=== PATIENT | female | born 1935 | race Caucasian/White ===

== ENCOUNTER → 2017-10-25 | Outpatient (CLI) | payer MEDICARE, OTHER, SELFPAY | PROVIDERS: Visit Provider Physician Assistant | DX: I25.10 Atherosclerotic heart disease of native coronary artery without angina pectoris (principal); I10 Essential (primary) hypertension; D64.9 Anemia, unspecified; N28.9 Disorder of kidney and ureter, unspecified | CPT/HCPCS: 80053; 84443; 85025 ==

== ENCOUNTER → 2017-11-12 15:21 | Outpatient (CLI) | payer MEDICARE, OTHER, SELFPAY ==
--- NOTE | 2017-11-12 15:32 | XR_ITS ---
XR chest 2V HISTORY: ITS.REASON: PNEUMONIA ORDERING PHYSICIAN: Kay Pearce PATIENT AGE: 82 years COMPARISON: 10/06/2017 FINDINGS: There is cardiomegaly with mild pulmonary venous congestion consistent with mild chronic CHF. 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 No lobar consolidation or collapse is evident. There is some blunting of the right CP angle suggesting small right effusion. There is mild wedging involving T11 unchanged. IMPRESSION: Chronic CHF with postsurgical changes and small right effusion
== END ==
PROVIDERS: PCP Nurse Practitioner Family; Visit Provider Nurse Practitioner Family
DX: J18.9 Pneumonia, unspecified organism (principal)
CPT/HCPCS: 71046

== ENCOUNTER → 2018-01-03 13:46 | Outpatient (CLI) | payer MEDICARE, OTHER, SELFPAY ==
--- NOTE | 2018-01-03 14:11 | NVE_ITS ---
Venous Exam Indications: 451.19 Phlebitis and thrombophlebitis of other. 729.5 Pain in limb. IMPRESSIONS 1. There is no evidence of significant Reflux. 2. No evidence of DVT of leftlower leg or SVT involving LSV or GSV 3. Superficial vein thrombosis found in superficial vein posteriorlower calf above ankle Left lower extremity venous duplex evaluation. Doppler flow study including spectral analysis, color and george scale imaging. Location: Vascular laboratory. Patient status: Outpatient. CRITICAL FINDINGS - Reported to: Meggan - Read back and verified. - 01/03/18 - 2010 - SVT superficial vein Tables: Venous flow and imaging: + +-------+ + Location Overall Flow properties + +-------+ + Left common femoral Patent Normal phasicity; spontaneous; normal augmentation; compressible + +-------+ + Left saphenofemoral junction Patent Compressible + +-------+ + Left profunda femoral Patent Compressible + +-------+ + Left femoral Patent Normal phasicity; spontaneous; normal augmentation; compressible + +-------+ + Left greater saphenous Patent Normal phasicity; spontaneous; normal augmentation; compressible + +-------+ + Left popliteal Patent Normal phasicity; spontaneous; normal augmentation; compressible + +-------+ + Left posterior tibial Patent Compressible + +-------+ + Left peroneal Patent Compressible + +-------+ + Left gastrocnemius Patent Compressible + +-------+ + Left soleal Patent Compressible + +-------+ + (Report amended ) Electronically signed by: Phil Lozano [id number]
== END ==
PROVIDERS: PCP Family Medicine; Visit Provider Family Medicine
DX: R60.9 Edema, unspecified (principal); M79.605 Pain in left leg; I82.812 Embolism and thrombosis of superficial veins of left lower extremity
CPT/HCPCS: 93971

== ENCOUNTER → 2018-10-08 12:28 | Outpatient (CLI) | payer MEDICARE, OTHER, SELFPAY ==
[2018-10-08 12:48] LABS: Basophils # 0.1 K/mm3 (0-0.2); Basophils % 0.7 % (0.1-2.0); Eosinophils # 0.3 K/mm3 (0.0-0.4); Eosinophils % 2.9 % (0.1-12.0); Hematocrit 33.2 % (37.0-47.0); Hemoglobin 10.5 g/dL (12.2-16.2); Lymphocytes # 3.1 K/mm3 (0.7-4.5); Lymphocytes % 33.3 % (10-50); Mean Corpuscular HGB Conc 31.6 g/dL (31.8-35.4); Mean Corpuscular Hemoglobin 26.8 pg (27.0-31.2); Mean Corpuscular Volume 84.9 fl (81-99); Mean Platelet Volume 8.1 fl (7.4-10.4); Monocytes # 0.4 K/mm3 (0.1-1.0); Monocytes % 4.1 % (1.7-9.3); Neutrophils # 5.4 K/mm3 (1.8-7.8); Neutrophils % 59.1 % (37.0-80.0); Platelet Count 189 K/mm3 (142-424); Red Blood Count 3.91 M/mm3 (4.20-5.40); Red Cell Distribution Width 13.9 % (11.5-17.5); White Blood Count 9.2 K/mm3 (4.8-10.8)
[2018-10-08 14:52] LABS: Alanine Aminotransferase 16 U/L (12-78); Albumin Level 3.7 gm/dL (3.4-5.0); Albumin/Globulin Ratio 1.3 (1.1-1.8); Alkaline Phosphatase 158 U/L (46-116); Aspartate Amino Transferase 11 U/L (15-37); Bilirubin,Total 1.4 mg/dL (0.2-1.0); Blood Urea Nitrogen 41 mg/dL (7-18); Calcium 8.5 mg/dL (8.5-10.1); Carbon Dioxide 26 mmol/L (21.0-32.0); Chloride 102 mmol/L (98-107); Creatinine,Serum 1.99 mg/dL (0.55-1.02); Estimated Glomerular Filt Rate 24 ml/min (>60); GFR (African American) 29 ML/MIN (>60); Globulin 2.8 gm/dl (1.3-3.2); Glucose 268 mg/dL (74-106); Sodium 141 mmol/L (136-145); Thyroid Stimulating Hormone 8.45 uIU/ml (0.358-3.740); Total Protein,Serum 6.5 gm/dL (6.4-8.2)
== END ==
PROVIDERS: Visit Provider Physician Assistant
DX: I48.91 Unspecified atrial fibrillation (principal); I25.10 Atherosclerotic heart disease of native coronary artery without angina pectoris; I10 Essential (primary) hypertension
CPT/HCPCS: 36415; 80053; 84443; 85025

== ENCOUNTER → 2019-08-26 09:40 | Outpatient (CLI) | payer MEDICARE, OTHER, SELFPAY ==
--- NOTE | 2019-08-26 09:52 | MM_ITS ---
PROCEDURE: MM DIG SCREENING MAMM BI W/CAD Patient Age:84Y CLINICAL INDICATION: SCREENING routine screening. No hormones but no new complaints. Noncontributory family history. Previous biopsy right breast COMPARISON: [facility] CT CHEST W/O CONTRAST from 07/01/2015 DMSB DIG MAMM-SCREEN YINKA W/CAD from 11/12/2016 DMDXUAVL DIG MAMM-DX UNI A/VWS-LT W/CAD from 11/21/2016 TECHNIQUE: Standard CC and MLO images were obtained. R2 CAD reviewed. FINDINGS: . Minimal residual fibroglandular elements bilaterally but. No dominant nor new suspicious mass. Numerous benign mainly vascular calcifications bilaterally-the multi-vessel calcification seen here often correlates with a higher incidence of coronary vascular disease Right breast but no new areas of concern. A tiny metallic clip at central breast towards 6 o'clock from previous percutaneous biopsy. Left breast: No new areas of significant concern Tight cluster of dense benign-appearing calcifications a superior lateral left breast again noted unchanged since 2017-can be followed safely IMPRESSION: Stable bilateral mammogram with no new areas of significant concern Bilateral follow-up 1 year recommended BI-RAD Category: 2 Benign Finding(s) FOLLOW-UP: 1YR 1 Year Follow-up (A letter has been sent to the patient regarding results of the study.) Dictated by: Phil Lozano MD 08/29/2019 07:52 Electronically signed by Phil Lozano MD in [place] 08/29/2019 07:52
== END ==
PROVIDERS: PCP Family Medicine; Visit Provider Nurse Practitioner Family
DX: Z12.31 Encounter for screening mammogram for malignant neoplasm of breast (principal)
CPT/HCPCS: 77067

== ENCOUNTER → 2019-08-31 13:06 | Outpatient (CLI) | payer MEDICARE, OTHER, SELFPAY ==
--- NOTE | 2019-08-31 13:19 | XR_ITS ---
PROCEDURE: XR DEXA AXIAL SKELETON CLINICAL HISTORY: OSTEOPROSIS COMPARISON: No exams were available for comparison FINDINGS: L1-L4 density has a T-score of 0.0 with a density of 1.184 grams/centimeters sq. Left femoral neck density is 0.568 grams/centimeters sq with a T-score of -3.4 consistent with osteoporosis. IMPRESSION: Osteoporosis with high fracture risk. Treatment advised. Suggest follow-up exam August 2020 Dictated by: Uziel Pham MD 08/31/2019 14:26 Electronically signed by Uziel Pham MD in [place] 08/31/2019 14:26
== END ==
PROVIDERS: PCP Family Medicine; Visit Provider Nurse Practitioner Family
DX: M81.0 Age-related osteoporosis without current pathological fracture (principal)
CPT/HCPCS: 77080

== ENCOUNTER → 2019-09-22 15:16 | Outpatient (CLI) | payer MEDICARE, OTHER, SELFPAY ==
--- NOTE | 2019-09-22 15:22 | XR_ITS ---
PROCEDURE: XR CHEST 2V CLINICAL HISTORY: LEF EDEMA Edema COMPARISON: [facility] CT CHEST W/O CONTRAST from 07/23/2016 CXR1 CHEST-PORTABLE from 09/30/2017 CXR CHEST(2 VIEWS-NOT PORTABLE) from 10/06/2017 CXR2V XR chest 2V from 11/12/2017 FINDINGS: There is cardiomegaly with mild pulmonary venous congestion. Chronic changes are present in the upper lobes. There are old left-sided rib fractures. No lobar consolidation or collapse. There is minimal blunting of the CP angles on both sides. Degenerative changes of the thoracic spine. Mild wedging of T11 which is chronic IMPRESSION: Mild CHF with chronic changes Dictated by: Uziel Pham MD 09/22/2019 16:23 Electronically signed by Uziel Pham MD in [place] 09/22/2019 16:23
== END ==
PROVIDERS: PCP Nurse Practitioner Family; Visit Provider Nurse Practitioner Family
DX: R60.0 Localized edema (principal)
CPT/HCPCS: 71046

== ENCOUNTER 2019-10-05 06:39 | Inpatient (IN) ==
--- NOTE | 2019-10-05 06:50 | Emergency Department Note ---
ED Disposition Clinical Impression: Renal insufficiency, Obesity (BMI 30.0-34.9) Rib fractures Qualifiers: Encounter type: initial encounter Rib fracture type: multiple ribs Fracture type: closed Laterality: left Qualified Code(s): S22.42XA - Multiple fractures of ribs, left side, initial encounter for closed fracture Fall Qualifiers: Encounter type: initial encounter Qualified Code(s): W19.XXXA - Unspecified fal l, initial encounter Anemia Qualifiers: Anemia type: unspecified type Qualified Code(s): D64.9 - Anemia, unspecified Diabetes Qualifiers: Diabetes mellitus type: type 2 Diabetes mellitus 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 home 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 The time I documented below is in addition to time spent performing reported procedures but includes the following listed in this critical care notation. Medical Decision Making - Medical Records Medical records reviewed: Yes: I reviewed the patient's medical records. - Roland Inquiry Pt receiving controlled substance: No Vital Signs: 10/05/19 06:40 Temperature 97.7 F Temperature Source Oral Pulse Rate [Right] 94 H Respiratory Rate 20 Blood Pressure [Right Arm] 128/69 Blood Pressure Mean [Right Arm] 88 Blood Pressure Source [Right Arm] Automatic Cuff Blood Pressure Position [Right Arm] Sitting 02 Sat by Pulse Oximetry 93 L Oxygen Delivery Method Room Air - Lab Data Lab results reviewed: Yes: I reviewed the patient's lab results. Lab Results 10/05/19 06:57: WBC 10.8, RBC 3.33 L, Hgb 9.0 L, Hct 29.8 L, MCV 89.6, MCH 27.1, MCHC 30.3 L, RDW 14.1, Plt Count 164, MPV 9.2, Neut % (Auto) 65.2, Lymph % (Auto) 28.2, [place] % (Auto) 4.1, Eos % (Auto) 2.2, Baso % (Auto) 0.3, Neut # (Auto) 7.0, Lymph # (Auto) 3.0, [place] # (Auto) 0.5, Eos # (Auto) 0.2, Baso # (Auto) 0.0, ESR 21 10/05/19 06:57: Sodium 143, Potassium 3.9, Chloride 105, Carbon Dioxide 28, Anion Gap 13.9, BUN 24 H, Creatinine 1.85 H, Estimated Creat Clear 29, Estimated GFR 26 L, Est GFR ( Amer) 31 L, Glucose 281 H, Calcium 8.8, Total Bilirubin 1.9 H, AST 19, ALT 11 L, Alkaline Phosphatase 108, C-Reactive Protein < 0.2, Total Protein 5.8 L, Albumin 3.3 L, Globulin 2.5, Albumin/Globulin Ratio 1.3 Result diagrams: 10/05/19 06:57 10/05/19 06:57 Orders (Tests/Meds): ED MEDICATIONS Discontinued Medications Generic Name Dose Route Start Last Admin Trade Name Freq PRN Reason Stop Dose Admin Morphine Sulfate 2 mg 10/05/19 07:53 10/05/19 07:57 Morphine 2mg/Ml Syringe IV 10/05/19 07:54 2 mg ONCE ONE Administration Ondansetron HCl 4 mg 10/05/19 07:54 10/05/19 07:57 Zofran 4mg/2ml Vial IV 10/05/19 07:55 4 mg ONCE ONE Administration ORDERS Category Date Time Status CT cervical spine wo con Stat Cat Scan 10/05/19 06:[address] chest wo con Stat Cat Scan 10/05/19 06:[address] head/brain wo con Stat Cat Scan 10/05/19 06:48 Taken XR chest AP Stat Exams 10/05/19 06:48 Taken XR pelvis 1-2V Stat Exams 10/05/19 06:48 Taken XR shoulder LT min 2V Stat Exams 10/05/19 06:48 Taken - Radiology Data #1 Image(s): Chest, Shoulder, Pelvis Image Reviewed: Yes I reviewed the patient's radiology image Preliminary Findings: Abnormal (rib fx ) - CT Data CT Scan: Head, C-Spine, Chest Time Received: 08:[address] Reviewed: Yes: I have viewed the radiologist's interpretation Preliminary Findings: Abnormal (multiple rib fx lt ) - Physician Consults Physician Consulted: eugene Reason -: Admission General Adult HPI - General Chief complaint: PAIN Stated complaint: fall Time Seen by Provider: 10/05/19 06:50 Mode of Arrival: EMS Source of Information: Patient, Relative, EMS, Medical Record Limitations: No Limitations Description of Symptoms (Recalled from ER Triage Doc. by RN): Pt rolled out of bed hit head, left ribs and left shoulder pain - History of Present Illness HPI narrative: fell oob this am with lt shoulder and rib injury and hit head but no loc - pain with inspiration Onset (ago): hour(s) Location: head, neck, chest, left, upper extremity Severity: moderate Associated symptoms: denies other symptoms Treatments prior to arrival: none - Related Data Allergies Allergy/AdvReac Type Severity Reaction Status Date / Time betamethasone Allergy Unknown Verified 10/05/19 08:00 [From CELESTONE] cefuroxime [From CEFTIN] Allergy Unknown Verified 10/05/19 08:00 dexamethasone [From DECADRON] Allergy Unknown Verified 10/05/19 08:00 enoxaparin [From LOVENOX] Allergy Unknown Verified 10/05/19 08:00 heparin [HEPARIN] Allergy Unknown Verified 10/05/19 08:00 nitrofurantoin Allergy Unknown Verified 10/05/19 08:00 [From MACRODANTIN] Penicillins Allergy Unknown Verified 10/05/19 08:00 prednisone [PREDNISONE] Allergy Unknown Verified 10/05/19 08:00 [facility] History - Hepatitis A Screen Drug use history?: No High risk sexual behaviors?: No History of sexually transmitted infection?: No Currently employed?: No Childcare worker?: No Do you have indoor plumbing?: Yes Do you have electricity?: Yes Attestation statement:: This patient has been screened for Hepatitis A risk factors. I have reviewed the patient's past medical history: Yes Medical History: Denies:: Diabetes Mellitus Type 1, Diabetes Mellitus Type 2, Internal Pacemaker Other Surgeries: No: Pacemaker - Social History Alcohol Intake: never Occupational Status: retired ROS Obtained: Yes All systems reviewed & no additional complaints - Constitutional Constitutional: Denies fever(s) - Eyes Eyes: Denies change in vision - ENT Ears, Nose, Mouth, and Throat: Denies sore throat - Cardiovascular Cardiovascular: Reports as per HPI, Reports chest pain, Denies dyspnea - Respiratory Respiratory: Yes as per HPI, No cough, Yes dyspnea, Yes pain on inspiration - Gastrointestinal Gastrointestingal: Denies: abdominal pain - Genitourinary Female Genitourinary: Denies hematuria - Musculoskeletal Musculoskeletal: Denies joint pain, Denies joint swelling - Integumentary/Breasts Skin/Breast: Denies rash - Neurologic Neurologic: Denies seizure-like activity Physical Exam - General General appearance: alert, in no apparent distress - Head Head exam: normocephalic - Eye Eye exam: Present: PERRL, EOMI. Absent: scleral icterus - ENT ENT exam: Present: mucous membranes dry - Neck Neck exam: Present: trachea midline - Chest Chest inspection: Present: tenderness - Respiratory Respiratory exam: Present: other (dec bs lt lungs ). Absent: respiratory distress - Cardiovascular Cardiovascular exam: Present: regular rate, systolic murmur, +S4 - Abdominal Exam Abdominal exam: Present: soft. Absent: tenderness, guarding, rebound, rigidity - Extremities Exam Extremities exam: Present: pedal edema - Expanded Upper Extremity Exam Left Shoulder exam: Present: tenderness. Absent: dislocation - Neurological Exam Neurological exam: Present: alert, oriented X3, CN II-XII intact - Psychiatric Psychiatric exam: Present: normal affect - Skin Skin exam: Absent: rash
[2019-10-05 07:18] LABS: Basophils % 0.3 % (0.1-2.0); Eosinophils # 0.2 K/mm3 (0.0-0.4); Eosinophils % 2.2 % (0.1-12.0); Hematocrit 29.8 % (37.0-47.0); Lymphocytes % 28.2 % (10-50); Mean Corpuscular HGB Conc 30.3 g/dL (31.8-35.4); Mean Corpuscular Volume 89.6 fl (81-99); Mean Platelet Volume 9.2 fl (7.4-10.4); Monocytes # 0.5 K/mm3 (0.1-1.0); Monocytes % 4.1 % (1.7-9.3); Neutrophils % 65.2 % (37.0-80.0); Platelet Count 164 K/mm3 (142-424); Red Blood Count 3.33 M/mm3 (4.20-5.40); Red Cell Distribution Width 14.1 % (11.5-17.5); White Blood Count 10.8 K/mm3 (4.8-10.8)
[2019-10-05 07:25] LABS: Alanine Aminotransferase 11 U/L (12-78); Albumin Level 3.3 gm/dL (3.4-5.0); Albumin/Globulin Ratio 1.3 (1.1-1.8); Alkaline Phosphatase 108 U/L (46-116); Anion Gap 13.9 mEq/L (5-15); Aspartate Amino Transferase 19 U/L (15-37); Bilirubin,Total 1.9 mg/dL (0.2-1.0); Blood Urea Nitrogen 24 mg/dL (7-18); Calcium 8.8 mg/dL (8.5-10.1); Carbon Dioxide 28 mmol/L (21.0-32.0); Chloride 105 mmol/L (98-107); Globulin 2.5 gm/dl (1.3-3.2); Glucose 281 mg/dL (74-106); Sodium 143 mmol/L (136-145); Total Protein,Serum 5.8 gm/dL (6.4-8.2)
[2019-10-05 07:26] LABS: C-Reactive Protein < 0.2 mg/dL (0.0-0.9)
[2019-10-05 07:43] LABS: Erythrocyte Sedimentation Rate 21 mm/hr (0-30)
--- NOTE | 2019-10-05 10:28 | Pharmacy Consult Notes ---
[facility] Pharmacy VTE Monitoring - Patient Demographics Admission date: 10/05/19 Report Date: 10/05/19 Time: 10:27 Allergies/Adverse Reactions: Patient Allergies enoxaparin [From LOVENOX] Allergy (Severe, Verified 10/05/19 09:49) Difficulty Breathing heparin [HEPARIN] Allergy (Severe, Verified 10/05/19 09:49) Difficulty Breathing Penicillins Allergy (Intermediate, Verified 10/05/19 09:49) Hives betamethasone [From CELESTONE] Allergy (Unknown, Verified 10/05/19 08:00) cefuroxime [From CEFTIN] Allergy (Unknown, Verified 10/05/19 08:00) dexamethasone [From DECADRON] Allergy (Unknown, Verified 10/05/19 08:00) nitrofurantoin [From MACRODANTIN] Allergy (Unknown, Verified 10/05/19 08:00) prednisone [PREDNISONE] Allergy (Unknown, Verified 10/05/19 08:00) alprenolol Adverse Reaction (Mild, Verified 10/05/19 09:48) Weakness Height: 1.65 m Weight: 77.196 kg Patient Problems: Current Active Problems Rib fractures (Acute) Fall (Acute) Anemia (Acute) Renal insufficiency (Acute) Obesity (BMI 30.0-34.9) (Acute) Diabetes (Acute) - VTE Risk Labs: VTE Related Lab Results Hgb 9.0 g/dL (12.2-16.2) L 10/05/19 06:57 Hct 29.8 % (37.0-47.0) L 10/05/19 06:57 Plt Count 164 K/mm3 (142-424) 10/05/19 06:57 BUN 24 mg/dL (7-18) H 10/05/19 06:57 Creatinine 1.85 mg/dL (0.55-1.02) H 10/05/19 06:57 Estimated Creat Clear 29 mL/min (50-200) 10/05/19 06:57 Was VTE Risk Assessment Performed: Yes VTE Score: 2 VTE Risk Level: Very Low Risk - Prophylaxis VTE Prophylaxis Ordered?: Yes Types of VTE Prophylaxis: TEDS Knee High Location of Applied Device: Bilateral Lower Extremeties - VTE Diagnosis Confirmed Treatment or plan recommended: Continue Current Treatment
--- NOTE | 2019-10-05 13:04 | History & Physical Report ---
*Admission Date: 10/05/19 <Kay Pearce 10/05/19 13:33> *Chief complaint: left chest wall pain <Kay Pearce 10/05/19 13:33> *History of present illness: . Ms. Hull is an 84-year-old female with a history of coronary artery disease, type 2 diabetes mellitus, CVA, hypertension, hypothyroidism, atrial fibrillation, and valvular heart disease who presented to [facility] emergency room after falling out of bed this a.m. She landed on her left side and hit her head on another piece of furniture. With evaluation in the emergency room she was found to have several fractured ribs. CT of the head showed nothing acute. X-ray of the pelvis and left shoulder were negative. Chest x-ray results are pendiing. She was admitted for further observation and pain management. At time of this exam at 9:15 AM patient showing discomfort with any type of movement. She actually states she hurts all over. It hurts to take a deep breath. She states she had morphine in the emergency room. <Kay Pearce 10/05/19 13:33> [facility] History Medical History: Reports:: Atherosclerotic Heart Disease, Atrial Fibrillation, Congestive Heart Failure, Coronary Artery Disease, Cerebrovascular Accident, Di abetes Mellitus Type 2, Hyperlipidemia, Hypertension, Renal Insufficiency, Valvular Heart Disease Denies:: Diabetes Mellitus Type 1, Internal Pacemaker <Kay Pearce 10/05/19 13:33> *Have you ever received a pneumonia vaccine?: Yes <Kay Pearce 10/05/19 13:33> *Have you received a flu vaccine this season?: No <Kay Pearce 10/05/19 13:33> Other Medical History: Reports: Anemia, Arthritis, Hypothyroidism <Kay Pearce 10/05/19 13:33> Comment:: Macular degeneration; mild aortic stenosis, moderate mitral regurgitation, moderate tricuspid regurgitation. <Kay Pearce 10/05/19 13:33> Laterality Cases: Bilateral: Cataract <Kay Pearce 10/05/19 13:33> Other Surgeries: Yes: Appendectomy, CABG, Cardiac Surgery, Cholecystectomy, Skin Cancer Excision, Ureter Stent. No: Pacemaker <Kay Pearce 10/05/19 13:33> Comment: Right knee surgery 1997; pins in her right arm [facility] 10/[facility] 13:33> - *Social History Smoking Status: Never smoker <Kay Pearce 10/05/19 13:33> Alcohol Intake: never <[facility] 10/05/19 13:33> *Occupational Status:: retired <[facility] 10/05/19 13:33> Housing: house <RamsesKay - 10/05/19 13:33> Household Members: family, other <[facility] 10/05/19 13:33> *Travel in the last 8 weeks: None <[facility] 10/05/19 13:33> Family Hx:: Cancer, Diabetes, Heart Attack, Hyperlipidemia, Hypertension, Stroke <PearceKay - 10/05/19 13:33> Review of Systems - Constitutional Denies fever(s) <PearceKay - 10/05/19 13:33> - [facility] in [facility] - ENT Denies ear pain, Denies sore throat [facility] 13:33> - *Cardiovascular Reports chest pain, Reports leg swelling, Denies shortness of breath <[facility] 13:33> - *Respiratory Reports cough, Reports pain with cough, Denies chest congestion, Denies shortness of breath, Denies excessive phlegm production <[facility] 10/[facility] 13:33> - *Gastrointestinal Denies abdominal pain, Denies change in bowel habits, Denies nausea, Denies vomiting <[facility] 10/05/[facility] 13:33> - *Genitourinary Denies difficulty urinating <PearceKay - 10/05/19 13:33> - *Musculoskeletal Reports muscle weakness [facility] 13:33> - *Neurologic Denies abnormal speech, Denies behavioral changes, Denies seizure-like activity <PearceKay - 10/05/19 13:33> Meds Home Medications Medication Instructions Recorded Confirmed Type Amlodipine Besylate [Norvasc 5mg 5 mg PO DAILY 10/05/19 10/05/19 History tablet] Aspirin [Aspir 81] 81 mg PO DAILY 10/05/19 10/05/19 History Atorvastatin Calcium [Lipitor 80mg 40 mg PO HS 10/05/19 10/05/19 History Tablet] Ferrous Sulfate [Iron] 325 mg PO TID 10/05/19 10/05/19 History Furosemide [Furosemide 40MG tAB] 40 mg PO DAILY 10/05/19 10/05/19 History Hydralazine HCl 50 mg PO TID 10/05/19 10/05/19 History Isosorbide Mononitrate [Imdur 30mg 30 mg PO TID 10/05/19 10/05/19 History ER tablet] Lisinopril [Lisinopril 20mg Tab] 20 mg PO DAILY 10/05/19 10/05/19 History Rivaroxaban [Xarelto 15mg tablet] 15 mg PO HS 10/05/19 10/05/19 History Vit A/C/E/Zinc/Selenium/Copper 1 each PO DAILY 10/05/19 10/05/19 History [Vision Formula Tablet] carvediloL [Carvedilol 25mg Tab] 25 mg PO BID 10/05/19 10/05/19 History <Yuliana Vasquezian - 10/05/19 17:20> Allergies Allergy/AdvReac Type Severity Reaction Status Date / Time enoxaparin [From LOVENOX] Allergy Severe Difficulty Verified 10/05/19 09:49 Breathing heparin [HEPARIN] Allergy Severe Difficulty Verified 10/05/19 09:49 Breathing Penicillins Allergy Intermediate Hives Verified 10/05/19 09:49 betamethasone Allergy Unknown Verified 10/05/19 08:00 [From CELESTONE] cefuroxime [From CEFTIN] Allergy Unknown Verified 10/05/19 08:00 dexamethasone [From DECADRON] Allergy Unknown Verified 10/05/19 08:00 nitrofurantoin Allergy Unknown Verified 10/05/19 08:00 [From MACRODANTIN] prednisone [PREDNISONE] Allergy Unknown Verified 10/05/19 08:00 alprenolol AdvReac Mild Weakness Verified 10/05/19 09:48 <Yuliana Vasquezian - 10/05/19 17:20> Exam Vital signs and Labs for Last 24 Hours: Temp Pulse Resp BP Pulse Ox 98 F 92 H 20 113/52 L 97 10/05/19 16:00 10/05/19 16:00 10/05/19 16:00 10/05/19 16:00 10/05/19 16:00 Laboratory Results - last 24 hr 10/05/19 06:57: WBC 10.8, RBC 3.33 L, Hgb 9.0 L, Hct 29.8 L, MCV 89.6, MCH 27.1, MCHC 30.3 L, RDW 14.1, Plt Count 164, MPV 9.2, Neut % (Auto) 65.2, Lymph % (Auto) 28.2, [place] % (Auto) 4.1, Eos % (Auto) 2.2, Baso % (Auto) 0.3, Neut # (Auto) 7.0, Lymph # (Auto) 3.0, [place] # (Auto) 0.5, Eos # (Auto) 0.2, Baso # (Auto) 0.0, ESR 21 10/05/19 06:57: Sodium 143, Potassium 3.9, Chloride 105, Carbon Dioxide 28, Anion Gap 13.9, BUN 24 H, Creatinine 1.85 H, Estimated Creat Clear 29, Estimated GFR 26 L, Est GFR ( Amer) 31 L, Glucose 281 H, Calcium 8.8, Total Bilirubin 1.9 H, AST 19, ALT 11 L, Alkaline Phosphatase 108, C-Reactive Protein < 0.2, Total Protein 5.8 L, Albumin 3.3 L, Globulin 2.5, Albumin/Globulin Ratio 1.3 10/05/19 11:38: POC Glucose 362 H* 10/05/19 16:53: POC Glucose 289 H <ChristinaShilo - 10/05/19 17:20> Temp Pulse Resp BP Pulse Ox 98 F 78 16 110/58 L 99 10/05/19 09:09 10/05/19 09:09 10/05/19 09:09 10/05/19 09:09 10/05/19 08:23 Laboratory Results - last 24 hr 10/05/19 06:57: WBC 10.8, RBC 3.33 L, Hgb 9.0 L, Hct 29.8 L, MCV 89.6, MCH 27.1, MCHC 30.3 L, RDW 14.1, Plt Count 164, MPV 9.2, Neut % (Auto) 65.2, Lymph % (Auto) 28.2, [place] % (Auto) 4.1, Eos % (Auto) 2.2, Baso % (Auto) 0.3, Neut # (Auto) 7.0, Lymph # (Auto) 3.0, [place] # (Auto) 0.5, Eos # (Auto) 0.2, Baso # (Auto) 0.0, ESR 21 10/05/19 06:57: Sodium 143, Potassium 3.9, Chloride 105, Carbon Dioxide 28, Anion Gap 13.9, BUN 24 H, Creatinine 1.85 H, Estimated Creat Clear 29, Estimated GFR 26 L, Est GFR ( Amer) 31 L, Glucose 281 H, Calcium 8.8, Total Bilirubin 1.9 H, AST 19, ALT 11 L, Alkaline Phosphatase 108, C-Reactive Protein < 0.2, Total Protein 5.8 L, Albumin 3.3 L, Globulin 2.5, Albumin/Globulin Ratio 1.3 10/05/19 11:38: POC Glucose 362 H* <Kay Pearce - 10/05/19 13:33> I & O for Last 24 hours: Intake & Output 10/02/19 10/03/19 10/04/19 10/05/19 23:59 23:59 23:59 23:59 Weight 170 lb 3.009 oz <Shilo Vasquez - 10/05/19 17:20> Intake & Output 10/03/19 10/04/19 10/05/19 10/06/19 11:59 11:59 11:59 11:59 Weight 170 lb 3.009 oz <Kay Pearce - 10/05/19 13:33> Radiology Reports for the Last 24 Hours: 10/05/2019 CT of the head IMPRESSION: No acute intracranial finding 10/05/2019 pelvic x-ray IMPRESSION: Osteoarthritis, no acute fracture 10/05/2019 left shoulder x-ray MPRESSION: 1. Multiple left-sided rib fractures. 2. Degenerative changes of the shoulder with no acute fracture or dislocation <Kay Pearce 10/05/19 13:33> - Constitutional no acute distress <Kay Pearce 10/05/19 13:33> Comments: Discomfort with any movement <Kay Pearce 10/05/19 13:33> - *Routine HEENT Exam Head: Present: normocephalic (Left forehead abrasion) <[facility]ce[facility] 10/05/19 13:33> Eye: Present: PERRL. Absent: conjunctival icterus, scleral injection <Pearce,[facility] 10/05/19 13:33> ENT: Present: mucous membranes moist <Pearce,[facility] 10/05/19 13:33> - *Routine Neck Exam Present: supple. Absent: lymphadenopathy, thyromegaly <[facility] 10/05/19 13:33> - *Routine Respiratory Exam Present: crackles (Left base) <[facility] 10/05[facility] 13:33> - *Routine Cardiovascular Exam Present: RRR, murmur <[facility] 10/05/19 13:33> - *Routine Abdominal Exam Present: soft, normoactive bowel sounds. Absent: tenderness, distended <[facility] 10/05/19 13:33> - *Routine Extremities Exam Absent: edema, calf tenderness <[facility] 10/05/19 13:33> Comments: upper Left arm with ecchymosis; FROM <[facility] 10/05/19 13:33> - *Routine Neurological Exam Present: alert, oriented X3 <[facility] 10/05/19 13:33> Assessment and Plan (1) Rib fractures Current visit: Yes Status: Acute Qualifiers: Encounter type: initial encounter Rib fracture type: multiple ribs Fracture type: closed Laterality: left Qualified Code(s): S22.42XA - Multiple fractures of ribs, left side, initial encounter for closed fracture Category: Medical Code(s): S22.39XA - Fracture of one rib, unspecified side, initial encounter for closed fracture (2) Fall Current visit: Yes Status: Acute Qualifiers: Encounter type: initial encounter Qualified Code(s): W19.XXXA - Unspecified fall, initial encounter Category: Medical Code(s): W19.XXXA - Unspecified fall, initial encounter (3) CAD (coronary artery disease) Current visit: Yes Status: Chronic Category: Medical Code(s): I25.10 - Atherosclerotic heart disease of [place] coronary artery without angina pectoris (4) Paroxysmal A-fib Current visit: Yes Status: Chronic Category: Medical Code(s): I48.0 - Paroxysmal atrial fibrillation (5) Anemia Current visit: Yes Status: Chronic Qualifiers: Anemia type: unspecified type Qualified Code(s): D64.9 - Anemia, unspecified Category: Medical Code(s): D64.9 - Anemia, unspecified (6) Diabetes Current visit: Yes Status: Chronic Qualifiers: Diabetes mellitus type: type 2 Diabetes mellitus terminal clerk insulin use: unspecified terminal clerk insulin use status Diabetes mellitus complication status: with other specified complication Qualified Code(s): E11.69 - Type 2 diabetes mellitus with other specified complication Category: Medical Code(s): E11.9 - Type 2 diabetes mellitus without complications (7) Renal insufficiency Current visit: Yes Status: Acute Category: Medical Code(s): N28.9 - Disorder of kidney and ureter, unspecified <ChristinaShilo - 10/05/19 17:20> (1) Rib fractures Current visit: Yes Status: Acute Qualifiers: Encounter type: initial encounter Rib fracture type: multiple ribs Fracture type: closed Laterality: left Qualified Code(s): S22.42XA - Multiple fractures of ribs, left side, initial encounter for closed fracture Category: Medical Code(s): S22.39XA - Fracture of one rib, unspecified side, initial encounter for closed fracture (2) Fall Current visit: Yes Status: Acute Qualifiers: Encounter type: initial encounter Qualified Code(s): W19.XXXA - Unspecified fall, initial encounter Category: Medical Code(s): W19.XXXA - Unspecified fall, initial encounter (3) CAD (coronary artery disease) Current visit: Yes Status: Chronic Category: Medical Code(s): I25.10 - Atherosclerotic heart disease of [place] coronary artery without angina pectoris (4) Paroxysmal A-fib Current visit: Yes Status: Chronic Category: Medical Code(s): I48.0 - Paroxysmal atrial fibrillation (5) Anemia Current visit: Yes Status: Chronic Qualifiers: Anemia type: unspecified type Qualified Code(s): D64.9 - Anemia, unspecified Category: Medical Code(s): D64.9 - Anemia, unspecified (6) Diabetes Current visit: Yes Status: Chronic Qualifiers: Diabetes mellitus type: type 2 Diabetes mellitus correction insulin use: unspecified terminal clerk insulin use status Diabetes mellitus complication statu s: with other specified complication Qualified Code(s): E11.69 - Type 2 diabetes mellitus with other specified complication Category: Medical Code(s): E11.9 - Type 2 diabetes mellitus without complications (7) Renal insufficiency Current visit: Yes Status: Acute Category: Medical Code(s): N28.9 - Disorder of kidney and ureter, unspecified <Kay Pearce - 10/05/19 13:01> - Assessment and plan all Dx Assessment and Plan for all problems:: Saw patient twice on day of admission, agree with above note. <Shilo Vasquez - 10/05/19 17:20> incentive spirometer; comfort; BP is lower and will only start carvedilol for now; sliding scale insulin <Kay Pearce - 10/05/19 13:33>
[2019-10-06 06:53] LABS: Basophils # 0.1 K/mm3 (0-0.2); Basophils % 0.5 % (0.1-2.0); Eosinophils # 0.1 K/mm3 (0.0-0.4); Eosinophils % 0.9 % (0.1-12.0); Monocytes # 0.7 K/mm3 (0.1-1.0); Red Cell Distribution Width 14.3 % (11.5-17.5); White Blood Count 14.4 K/mm3 (4.8-10.8)
[2019-10-06 06:54] LABS: Anion Gap 12.6 mEq/L (5-15); Calcium 8.3 mg/dL (8.5-10.1)
[2019-10-06 07:10] LABS: Lymphocytes # 5.7 K/mm3 (0.7-4.5); Lymphocytes % 39.8 % (10-50); Mean Corpuscular HGB Conc 29.9 g/dL (31.8-35.4); Mean Corpuscular Volume 90.7 fl (81-99); Mean Platelet Volume 8.9 fl (7.4-10.4); Monocytes % 4.7 % (1.7-9.3); Neutrophils # 7.8 K/mm3 (1.8-7.8); Neutrophils % 54.1 % (37.0-80.0); Platelet Count 179 K/mm3 (142-424); Red Blood Count 2.51 M/mm3 (4.20-5.40)
[2019-10-06 07:25] LABS: Hemoglobin 6.8 g/dL (12.2-16.2)
--- NOTE | 2019-10-06 08:23 | Progress Note ---
<Kay Pearce - Last Filed: 10/06/19 08:19> Internal Medicine - PN: Subj *Date: 10/06/19 *Time: 08:19 Interval history: Patient has had morphine and Tylenol for pain which assisted her with sleeping. Her pain is on the left chest wall and mostly with deep inspiration. She does have some left upper abdominal discomfort. He is eating a very little. She is voiding 100 cc since admission and does not need to void at present. She denies shortness of breath. Exam Vital signs and Labs for Last 24 Hours: Temp Pulse Resp BP Pulse Ox 98.1 F 111 H 20 119/59 L 91 L 10/06/19 08:00 10/06/19 08:00 10/06/19 08:00 10/06/19 08:00 10/06/19 08:00 Laboratory Results - last 24 hr 10/05/19 11:38: POC Glucose 362 H* 10/05/19 16:53: POC Glucose 289 H 10/05/19 20:43: POC Glucose 216 H 10/06/19 04:59: POC Glucose 115 H 10/06/19 06:35: WBC 14.4 H D, RBC 2.51 L, Hgb 6.8 L* D, Hct 23.0 L*, MCV 90.7, MCH 27.2, MCHC 29.9 L, RDW 14.3, Plt Count 179, MPV 8.9, Neut % (Auto) 54.1, Lymph % (Auto) 39.8, [place] % (Auto) 4.7, Eos % (Auto) 0.9, Baso % (Auto) 0.5, Neut # (Auto) 7.8, Lymph # (Auto) 5.7 H, [place] # (Auto) 0.7, Eos # (Auto) 0.1, Baso # (Auto) 0.1 10/06/19 06:35: Sodium 141, Potassium 4.6, Chloride 105, Carbon Dioxide 28, Anion Gap 12.6, BUN 37 H D, Creatinine 3.05 H D, Estimated Creat Clear 17, Estimated GFR 15 L*, Est GFR ( Amer) 18 L* D, Glucose 174 H D, Calcium 8.3 L I & O for Last 24 hours: Intake & Output 10/03/19 10/04/19 10/05/1919 11:59 11:59 11:59 11:59 Intake Total 666 / 666 Output Total 100 / 100 Balance 566 / 566 Weight 170 lb 3.009 oz 170 lb 3.009 oz - Constitutional no acute distress Comments: Sitting up in his bed and trying to eat breakfast. - *Routine HEENT Exam Comments: Ecchymosis and edema of the left forehead - *Routine Respiratory Exam Comments: Decreased breath sounds on the left with bibasilar crackles - *Routine Cardiovascular Exam Present: irregular rhythm - *Routine Abdominal Exam Present: normoactive bowel sounds, tenderness (Left upper quadrant), distended - *Routine Extremities Exam Absent: edema Comments: Full range of motion of the left arm. Ecchymosis of lower and upper arm. - *Routine Neurological Exam Present: alert, oriented X3 Assessment and Plan (1) Rib fractures Current visit: Yes Status: Acute Qualifiers: Encounter type: initial encounter Rib fracture type: multiple ribs Fracture type: closed Laterality: left Qualified Code(s): S22.42XA - Multiple fractures of ribs, left side, initial encounter for closed fracture Category: Medical Code(s): S22.39XA - Fracture of one rib, unspecified side, initial encounter for closed fracture (2) Fall Current visit: Yes Status: Acute Qualifiers: Encounter type: initial encounter Qualified Code(s): W19.XXXA - Unspecified fall, initial encounter Category: Medical Code(s): W19.XXXA - Unspecified fall, initial encounter (3) CAD (coronary artery disease) Current visit: Yes Status: Chronic Category: Medical Code(s): I25.10 - Atherosclerotic heart disease of [place] coronary artery without angina pectoris (4) Paroxysmal A-fib Current visit: Yes Status: Chronic Category: Medical Code(s): I48.0 - Paroxysmal atrial fibrillation (5) Anemia Current visit: Yes Status: Chronic Qualifiers: Anemia type: unspecified type Qualified Code(s): D64.9 - Anemia, unspecified Category: Medical Code(s): D64.9 - Anemia, unspecified (6) Diabetes Current visit: Yes Status: Chronic Qualifiers: Diabetes mellitus type: type 2 Diabetes mellitus salvage determiner insulin use: unspecified salvage determiner insulin use status Diabetes mellitus complication status: with other specified complication Qualified Code(s): E11.69 - Type 2 diabetes mellitus with other specified complication Category: Medical Code(s): E11.9 - Type 2 diabetes mellitus without complications (7) Renal insufficiency Current visit: Yes Status: Acute Category: Medical Code(s): N28.9 - Disorder of kidney and ureter, unspecified (8) Blood loss anemia Current visit: Yes Status: Acute Category: Medical Code(s): D50.0 - Iron deficiency anemia secondary to blood loss (chronic) - Assessment and plan all Dx Assessment and Plan for all problems:: We will give 2 units of packed red blood cells. We will continue with pulmonary hygiene. Will discuss further testing with Dr. Vasquez <Shilo Vasquez - Last Filed: 10/06/19 08:49> Internal Medicine - PN: Subj *Date: 10/06/19 *Time: 08:48 Exam Vital signs and Labs for Last 24 Hours: Temp Pulse Resp BP Pulse Ox 98.1 F 111 H 20 119/59 L 91 L 10/06/19 08:00 10/06/19 08:00 10/06/19 08:00 10/06/19 08:00 10/06/19 08:00 Laboratory Results - last 24 hr 10/05/19 11:38: POC Glucose 362 H* 10/05/19 16:53: POC Glucose 289 H 10/05/19 20:43: POC Glucose 216 H 10/06/19 04:59: POC Glucose 115 H 10/06/19 06:35: WBC 14.4 H D, RBC 2.51 L, Hgb 6.8 L* D, Hct 23.0 L*, MCV 90.7, MCH 27.2, MCHC 29.9 L, RDW 14.3, Plt Count 179, MPV 8.9, Neut % (Auto) 54.1, Lymph % (Auto) 39.8, [place] % (Auto) 4.7, Eos % (Auto) 0.9, Baso % (Auto) 0.5, Neut # (Auto) 7.8, Lymph # (Auto) 5.7 H, [place] # (Auto) 0.7, Eos # (Auto) 0.1, Baso # (Auto) 0.1 10/06/19 06:35: Sodium 141, Potassium 4.6, Chloride 105, Carbon Dioxide 28, Anion Gap 12.6, BUN 37 H D, Creatinine 3.05 H D, Estimated Creat Clear 17, Estimated GFR 15 L*, Est GFR ( Amer) 18 L* D, Glucose 174 H D, Calcium 8.3 L I & O for Last 24 hours: Intake & Output 10/03/19 10/04/19 10/05/19 10/06/19 23:59 23:59 23:59 23:59 Intake Total 546 / 546 120 / 120 Output Total 100 / 100 Balance 446 / 446 120 / 120 Weight 170 lb 3.009 oz 170 lb 3.009 oz Assessment and Plan (1) Rib fractures Current visit: Yes Status: Acute Qualifiers: Encounter type: initial encounter Rib fracture type: multiple ribs Fracture type: closed Laterality: left Qualified Code(s): S22.42XA - Multiple fractures of ribs, left side, initial encounter for closed fracture Category: Medical Code(s): S22.39XA - Fracture of one rib, unspecified side, initial encounter for closed fracture (2) Fall Current visit: Yes Status: Acute Qualifiers: Encounter type: initial encounter Qualified Code(s): W19.XXXA - Unspecified fall, initial encounter Category: Medical Code(s): W19.XXXA - Unspecified fall, initial encounter (3) CAD (coronary artery disease) Current visit: Yes Status: Chronic Category: Medical Code(s): I25.10 - Atherosclerotic heart disease of [place] coronary artery without angina pectoris (4) Paroxysmal A-fib Current visit: Yes Status: Chronic Category: Medical Code(s): I48.0 - Paroxysmal atrial fibrillation (5) Anemia Current visit: Yes Status: Chronic Qualifiers: Anemia type: unspecified type Qualified Code(s): D64.9 - Anemia, unspecified Category: Medical Code(s): D64.9 - Anemia, unspecified (6) Diabetes Current visit: Yes Status: Chronic Qualifiers: Diabetes mellitus type: type 2 Diabetes mellitus intermediate insulin use: unspecified intermediate insulin use status Diabetes mellitus complication status: with other specified complication Qualified Code(s): E11.69 - Type 2 diabetes mellitus with other specified complication Category: Medical Code(s): E11.9 - Type 2 diabetes mellitus without complications (7) Renal insufficiency Current visit: Yes Status: Acute Category: Medical Code(s): N28.9 - Disorder of kidney and ureter, unspecified (8) Blood loss anemia Current visit: Yes Status: Acute Category: Medical Code(s): D50.0 - Iron deficiency anemia secondary to blood loss (chronic) - Assessment and plan all Dx Assessment and Plan for all problems:: Saw patient, agree with above note.
[2019-10-07 07:03] LABS: Basophils # 0.1 K/mm3 (0-0.2); Basophils % 0.4 % (0.1-2.0); Eosinophils # 0.1 K/mm3 (0.0-0.4); Eosinophils % 0.7 % (0.1-12.0); Hemoglobin 8.6 g/dL (12.2-16.2); Lymphocytes # 3.8 K/mm3 (0.7-4.5); Lymphocytes % 32.3 % (10-50); Mean Corpuscular HGB Conc 30.8 g/dL (31.8-35.4); Mean Corpuscular Volume 88.8 fl (81-99); Mean Platelet Volume 9.4 fl (7.4-10.4); Monocytes # 0.5 K/mm3 (0.1-1.0); Monocytes % 4.4 % (1.7-9.3); Neutrophils # 7.3 K/mm3 (1.8-7.8); Neutrophils % 62.3 % (37.0-80.0); Platelet Count 161 K/mm3 (142-424); Red Blood Count 3.16 M/mm3 (4.20-5.40); Red Cell Distribution Width 14.6 % (11.5-17.5); White Blood Count 11.8 K/mm3 (4.8-10.8)
[2019-10-07 07:53] LABS: Albumin/Globulin Ratio 1.2 (1.1-1.8); Anion Gap 15.8 mEq/L (5-15); Globulin 2.6 gm/dl (1.3-3.2); Total Protein,Serum 5.6 gm/dL (6.4-8.2)
--- NOTE | 2019-10-07 07:54 | Progress Note ---
<Kay Pearce - Last Filed: 10/07/19 08:45> Internal Medicine - PN: Subj *Date: 10/07/19 *Time: 08:45 Interval history: Patient is not feeling well this morning. She has pain in her left chest and left abdomen. She has difficulty with taking a deep breath. She cannot cough. It hurts to move. She received morphine which helps a little. She does not feel like eating. She denies nausea. Systolic blood pressures been in the 90s to 119. She has had minimal urinary output. She did receive 2 units of packed red blood cells. Laboratory Tests 10/06/19 10/06/19 10/07/19 06:35 06:35 06:45 WBC 11.8 H Hgb 6.8 L* D 8.6 L Hct 23.0 L* 28.0 L Sodium Potassium Chloride Carbon Dioxide BUN 37 H D Creatinine 3.05 H D Estimated Creat Clear 17 Estimated GFR 15 L* Total Bilirubin 10/07/19 06:45 WBC Hgb Hct Sodium 140 Potassium 4.8 Chloride 103 Carbon Dioxide 26 BUN 43 H Creatinine 3.34 H Estimated Creat Clear 16 Estimated GFR 13 L* Total Bilirubin 3.0 H Exam Vital signs and Labs for Last 24 Hours: Temp Pulse Resp BP Pulse Ox 98.9 F 103 H 24 119/50 L 90 L 10/07/19 04:00 10/07/19 04:00 10/07/19 07:36 10/07/19 04:00 10/07/19 04:00 Laboratory Results - last 24 hr 10/06/19 08:57: Blood Type O Positive, Antibody Screen Negative, Crossmatch (AHG) See Detail 10/06/19 10:13: Blood Type Confirm O Positive 10/06/19 11:50: POC Glucose 256 H 10/06/19 17:09: POC Glucose 208 H 10/06/19 20:22: POC Glucose 193 H 10/07/19 06:47: POC Glucose 161 H I & O for Last 24 hours: Intake & Output 10/04/19 10/05/19 10/06/19 10/07/19 11:59 11:59 11:59 11:59 Intake Total 666 / 666 1936 / 1936 Output Total 100 / 100 100 / 100 Balance 566 / 566 1836 / 1836 Weight 170 lb 3.009 oz 170 lb 3.009 oz 178 lb 2 oz - Constitutional Comments: Is uncomfortable. Shallow respiratory effort. - *Routine Respiratory Exam Present: decreased breath sounds (Cyst.) - *Routine Cardiovascular Exam Present: irregularly irregular - *Routine Abdominal Exam Present: normoactive bowel sounds, tenderness (Left mid and upper quadrant), distended, guarding - *Routine Extremities Exam Present: edema (Minimal) Comments: SCUDS on bilateral lower legs - *Routine Neurological Exam Present: alert, oriented X3 Assessment and Plan (1) Rib fractures Current visit: Yes Status: Acute Qualifiers: Encounter type: initial encounter Rib fracture type: multiple ribs Fracture type: closed Laterality: left Qualified Code(s): S22.42XA - Multiple fractures of ribs, left side, initial encounter for closed fracture Category: Medical Code(s): S22.39XA - Fracture of one rib, unspecified side, initial encounter for closed fracture (2) Fall Current visit: Yes Status: Acute Qualifiers: Encounter type: initial encounter Qualified Code(s): W19.XXXA - Unspecified fall, initial encounter Category: Medical Code(s): W19.XXXA - Unspecified fall, initial encounter (3) CAD (coronary artery disease) Current visit: Yes Status: Chronic Category: Medical Code(s): I25.10 - Atherosclerotic heart disease of [place] coronary artery without angina pectoris (4) Paroxysmal A-fib Current visit: Yes Status: Chronic Category: Medical Code(s): I48.0 - Paroxysmal atrial fibrillation (5) Anemia Current visit: Yes Status: Chronic Qualifiers: Anemia type: unspecified type Qualified Code(s): D64.9 - Anemia, unspecified Category: Medical Code(s): D64.9 - Anemia, unspecified (6) Diabetes Current visit: Yes Status: Chronic Qualifiers: Diabetes mellitus type: type 2 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 Diabetes mellitus complication status: with other specified complication Qualified Code(s): E11.69 - Type 2 diabetes mellitus with other specified complication Category: Medical Code(s): E11.9 - Type 2 diabetes mellitus without complications (7) Renal insufficiency Current visit: Yes Status: Acute Category: Medical Code(s): N28.9 - Disorder of kidney and ureter, unspecified (8) Blood loss anemia Current visit: Yes Status: Acute Category: Medical Code(s): D50.0 - Iron deficiency anemia secondary to blood loss (chronic) - Assessment and plan all Dx Assessment and Plan for all problems:: We will continue to provide comfort measures. Will place on telemetry to monitor her heart rate and atrial fib. Will insert Navarro catheter to monitor urinary outpuT and to see if this helps abdominal discomfort. Needs aggressive pulmonary care. Will give 500 cc fluid bolus and increase IV rate to 125/h. Will get CT scanning of the abdomen without contrast as well as a chest x-ray. <Shilo Vasquez - Last Filed: 10/07/19 08:52> Internal Medicine - PN: Subj *Date: 10/07/19 *Time: 08:51 Exam Vital signs and Labs for Last 24 Hours: Temp Pulse Resp BP Pulse Ox 99.1 F 113 H 20 155/67 H 89 L 10/07/19 08:00 10/07/19 08:00 10/07/19 08:00 10/07/19 08:00 10/07/19 08:00 Laboratory Results - last 24 hr 10/06/19 08:57: Blood Type O Positive, Antibody Screen Negative, Crossmatch (AHG) See Detail 10/06/19 10:13: Blood Type Confirm O Positive 10/06/19 11:50: POC Glucose 256 H 10/06/19 17:09: POC Glucose 208 H 10/06/19 20:22: POC Glucose 193 H 10/07/19 06:45: WBC 11.8 H, RBC 3.16 L D, Hgb 8.6 L, Hct 28.0 L, MCV 88.8, MCH 27.3, MCHC 30.8 L, RDW 14.6, Plt Count 161, MPV 9.4, Neut % (Auto) 62.3, Lymph % (Auto) 32.3, [place] % (Auto) 4.4, Eos % (Auto) 0.7, Baso % (Auto) 0.4, Neut # (Auto) 7.3, Lymph # (Auto) 3.8, [place] # (Auto) 0.5, Eos # (Auto) 0.1, Baso # (Auto) 0.1 10/07/19 06:45: Sodium 140, Potassium 4.8, Chloride 103, Carbon Dioxide 26, Anion Gap 15.8 H, BUN 43 H, Creatinine 3.34 H, Estimated Creat Clear 16, Estimated GFR 13 L*, Est GFR ( Amer) 16 L*, Glucose 160 H, Calcium 8.0 L, Total Bilirubin 3.0 H, AST 28 D, ALT 12, Alkaline Phosphatase 89, Total Protein 5.6 L, Albumin 3.0 L, Globulin 2.6, Albumin/Globulin Ratio 1.2 10/07/19 06:47: POC Glucose 161 H I & O for Last 24 hours: Intake & Output 10/04/19 10/05/19 10/06/19 10/07/19 23:59 23:59 23:59 23:59 Intake Total 546 / 546 1268 / 1268 788 / 788 Output Total 100 / 100 100 / 100 Balance 446 / 446 1168 / 1168 788 / 788 Weight 170 lb 3.009 oz 170 lb 3.009 oz 178 lb 2 oz Assessment and Plan (1) Rib fractures Current visit: Yes Status: Acute Qualifiers: Encounter type: initial encounter Rib fracture type: multiple ribs Fracture type: closed Laterality: left Qualified Code(s): S22.42XA - Multiple fractures of ribs, left side, initial encounter for closed fracture Category: Medical Code(s): S22.39XA - Fracture of one rib, unspecified side, initial encounter for closed fracture (2) Fall Current visit: Yes Status: Acute Qualifiers: Encounter type: initial encounter Qualified Code(s): W19.XXXA - Unspecified fall, initial encounter Category: Medical Code(s): W19.XXXA - Unspecified fall, initial encounter (3) CAD (coronary artery disease) Current visit: Yes Status: Chronic Category: Medical Code(s): I25.10 - Atherosclerotic heart disease of [place] coronary artery without angina pectoris (4) Paroxysmal A-fib Current visit: Yes Status: Chronic Category: Medical Code(s): I48.0 - Paroxysmal atrial fibrillation (5) Anemia Current visit: Yes Status: Chronic Qualifiers: Anemia type: unspecified type Qualified Code(s): D64.9 - Anemia, unspecified Category: Medical Code(s): D64.9 - Anemia, unspecified (6) Diabetes Current visit: Yes Status: Chronic Qualifiers: Diabetes mellitus type: type 2 Diabetes mellitus fci insulin use: unspecified fci insulin use status Diabetes mellitus complication status: with other specified complication Qualified Code(s): E11.69 - Type 2 diabetes mellitus with other specified complication Category: Medical Code(s): E11.9 - Type 2 diabetes mellitus without complications (7) Renal insufficiency Current visit: Yes Status: Acute Category: Medical Code(s): N28.9 - Disorder of kidney and ureter, unspecified (8) Blood loss anemia Current visit: Yes Status: Acute Category: Medical Code(s): D50.0 - Iron deficiency anemia secondary to blood loss (chronic) - Assessment and plan all Dx Assessment and Plan for all problems:: Saw patient, agree with above note.
[2019-10-07 09:20] LABS: Microscopic, Urine URINE MICROSCOPIC (MICROSCOPIC)
[2019-10-07 09:22] LABS: Appearance,Urine CLOUDY (Clear); Bilirubin,Urine Negative (Negative); Blood, Urine Negative (Negative); Color,Urine DK YELLOW (Yellow); Glucose,Urine (UA) Negative (Negative); Ketones,Urine Negative (Negative); Leukocyte Esterase,Urine Negative (Negative); PH,Urine 5.5 (5.0-8.5); Protein,Urine Negative (Negative); Specific Gravity, Urine >= 1.030 (1.005-1.030); Urobilinogen,Urine 0.2 EU/dl (0.2)
[2019-10-07 09:33] LABS: Amorphous Sediment,Urine 1+ /lpf; Bacteria,Urine Trace /lpf; RBC,Urine Occasional #/hpf (0-3)
[2019-10-08 07:39] LABS: Basophils % 0.2 % (0.1-2.0); Eosinophils # 0.1 K/mm3 (0.0-0.4); Eosinophils % 1.2 % (0.1-12.0); Lymphocytes % 21.1 % (10-50); Mean Corpuscular HGB Conc 30.7 g/dL (31.8-35.4); Mean Corpuscular Volume 92.3 fl (81-99); Mean Platelet Volume 9.7 fl (7.4-10.4); Monocytes # 0.6 K/mm3 (0.1-1.0); Monocytes % 6.3 % (1.7-9.3); Neutrophils # 6.8 K/mm3 (1.8-7.8); Neutrophils % 71.2 % (37.0-80.0); Platelet Count 131 K/mm3 (142-424); Red Cell Distribution Width 14.3 % (11.5-17.5); White Blood Count 9.5 K/mm3 (4.8-10.8)
[2019-10-08 07:42] LABS: Hematocrit 26.6 % (37.0-47.0); Hemoglobin 8.2 g/dL (12.2-16.2)
--- NOTE | 2019-10-08 08:22 | Progress Note ---
<Ebony Garcia - Last Filed: 10/08/19 08:19> Internal Medicine - PN: Subj *Date: 10/08/19 *Time: 08:19 Interval history: Patient is groggy this morning from pain medication. She states she slept well last night but did not eat much this morning. She denies any pain at this time. Consolidation was found on her CT and she was started on Levaquin yesterday. Exam Vital signs and Labs for Last 24 Hours: Temp Pulse Resp BP Pulse Ox 98.0 F 90 18 114/78 94 L 10/08/19 04:21 10/08/19 04:21 10/08/19 04:21 10/08/19 04:21 10/08/19 04:21 Laboratory Results - last 24 hr 10/06/19 06:35: Hgb 6.8 L* D 10/07/19 09:10: Urine Color Dk yellow, Urine Appearance Cloudy, Urine pH 5.5, Ur Specific [place] >= 1.030, Urine Protein Negative, Urine Glucose (UA) Negative, Urine Ketones Negative, Urine Blood Negative, Urine Nitrate Negative, Urine Bilirubin Negative, Urine Urobilinogen 0.2, Ur Leukocyte Esterase Negative, Urine RBC Occasional, Urine WBC 10-20, Ur Squamous Epith Cells 5-10, Amorphous Sediment 1+, Urine Bacteria Trace 10/07/19 11:03: POC Glucose 194 H 10/07/19 16:35: POC Glucose 208 H 10/07/19 20:31: POC Glucose 169 H 10/08/19 05:41: POC Glucose 152 H 10/08/19 07:20: WBC 9.5, RBC 2.90 L, Hgb 8.2 L, Hct 26.6 L, MCV 92.3, MCH 28.4, MCHC 30.7 L, RDW 14.3, Plt Count 131 L, MPV 9.7, Neut % (Auto) 71.2, Lymph % (Auto) 21.1, [place] % (Auto) 6.3, Eos % (Auto) 1.2, Baso % (Auto) 0.2, Neut # (Auto) 6.8, Lymph # (Auto) 2.0, [place] # (Auto) 0.6, Eos # (Auto) 0.1, Baso # (Auto) 0.0 I & O for Last 24 hours: Intake & Output 10/05/19 10/06/19 10/07/19 10/08/19 11:59 11:59 11:59 11:59 Intake Total 666 / 666 2055 3438 / 3438 Output Total 100 / 100 100 / 100 350 / 350 Balance 566 / 566 1955 3088 / 3088 Weight 170 lb 3.009 oz 170 lb 3.009 oz 178 lb 2 oz 179 lb 12.8 oz - Constitutional Comments: Groggy from pain medication - *Routine Respiratory Exam Present: rales (faint bibasilar) - *Routine Cardiovascular Exam Present: irregularly irregular - *Routine Abdominal Exam Present: soft, normoactive bowel sounds. Absent: tenderness - *Routine Extremities Exam Absent: cyanosis, clubbing, edema Comments: SCUDS in place - *Routine Skin Exam Present: warm. Absent: rash Assessment and Plan (1) Rib fractures Current visit: Yes Status: Acute Qualifiers: Encounter type: initial encounter Rib fracture type: multiple ribs Fracture type: closed Laterality: left Qualified Code(s): S22.42XA - Multiple fractures of ribs, left side, initial encounter for closed fracture Category: Medical Code(s): S22.39XA - Fracture of one rib, unspecified side, initial encounter for closed fracture (2) Fall Current visit: Yes Status: Acute Qualifiers: Encounter type: initial encounter Qualified Code(s): W19.XXXA - Unspecified fall, initial encounter Category: Medical Code(s): W19.XXXA - Unspecified fall, initial encounter (3) CAD (coronary artery disease) Current visit: Yes Status: Chronic Category: Medical Code(s): I25.10 - Atherosclerotic heart disease of [place] coronary artery without angina pectoris (4) Paroxysmal A-fib Current visit: Yes Status: Chronic Category: Medical Code(s): I48.0 - Paroxysmal atrial fibrillation (5) Anemia Current visit: Yes Status: Chronic Qualifiers: Anemia type: unspecified type Qualified Code(s): D64.9 - Anemia, unspecified Category: Medical Code(s): D64.9 - Anemia, unspecified (6) Diabetes Current visit: Yes Status: Chronic Qualifiers: Diabetes mellitus type: type 2 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 Diabetes mellitus complication status : with other specified complication Qualified Code(s): E11.69 - Type 2 diabetes mellitus with other specified complication Category: Medical Code(s): E11.9 - Type 2 diabetes mellitus without complications (7) Renal insufficiency Current visit: Yes Status: Acute Category: Medical Code(s): N28.9 - Disorder of kidney and ureter, unspecified (8) Blood loss anemia Current visit: Yes Status: Acute Category: Medical Code(s): D50.0 - Iron deficiency anemia secondary to blood loss (chronic) - Assessment and plan all Dx Assessment and Plan for all problems:: Awaiting labs this morning. We will continue antibiotics for possible pneumonia. Will discuss further care with Dr. Vasquez. <Shilo Vasquez - Last Filed: 10/08/19 08:31> Internal Medicine - PN: Subj *Date: 10/08/19 *Time: 08:30 Exam Vital signs and Labs for Last 24 Hours: Temp Pulse Resp BP Pulse Ox 98.0 F 90 18 114/78 94 L 10/08/19 04:21 10/08/19 04:21 10/08/19 04:21 10/08/19 04:21 10/08/19 04:21 Laboratory Results - last 24 hr 10/06/19 06:35: Hgb 6.8 L* D 10/07/19 09:10: Urine Color Dk yellow, Urine Appearance Cloudy, Urine pH 5.5, Ur Specific [place] >= 1.030, Urine Protein Negative, Urine Glucose (UA) Negative, Urine Ketones Negative, Urine Blood Negative, Urine Nitrate Negative, Urine Bilirubin Negative, Urine Urobilinogen 0.2, Ur Leukocyte Esterase Negative, Urine RBC Occasional, Urine WBC 10-20, Ur Squamous Epith Cells 5-10, Amorphous Sediment 1+, Urine Bacteria Trace 10/07/19 11:03: POC Glucose 194 H 10/07/19 16:35: POC Glucose 208 H 10/07/19 20:31: POC Glucose 169 H 10/08/19 05:41: POC Glucose 152 H 10/08/19 07:20: WBC 9.5, RBC 2.90 L, Hgb 8.2 L, Hct 26.6 L, MCV 92.3, MCH 28.4, MCHC 30.7 L, RDW 14.3, Plt Count 131 L, MPV 9.7, Neut % (Auto) 71.2, Lymph % (Auto) 21.1, [place] % (Auto) 6.3, Eos % (Auto) 1.2, Baso % (Auto) 0.2, Neut # (Auto) 6.8, Lymph # (Auto) 2.0, [place] # (Auto) 0.6, Eos # (Auto) 0.1, Baso # (Auto) 0.0 I & O for Last 24 hours: Intake & Output 10/05/19 10/06/19 10/07/19 10/08/19 23:59 23:59 23:59 23:59 Intake Total 546 / 546 1268 / 1268 3060 / 3060 1286 / 1286 Output Total 100 / 100 100 / 100 350 / 350 Balance 446 / 446 1168 / 1168 3060 / 3060 936 / 936 Weight 170 lb 3.009 oz 170 lb 3.009 oz 178 lb 2 oz 179 lb 12.8 oz Assessment and Plan (1) Rib fractures Current visit: Yes Status: Acute Qualifiers: Encounter type: initial encounter Rib fracture type: multiple ribs Fracture type: closed Laterality: left Qualified Code(s): S22.42XA - Multiple fractures of ribs, left side, initial encounter for closed fracture Category: Medical Code(s): S22.39XA - Fracture of one rib, unspecified side, initial encounter for closed fracture (2) Fall Current visit: Yes Status: Acute Qualifiers: Encounter type: initial encounter Qualified Code(s): W19.XXXA - Unspecified fall, initial encounter Category: Medical Code(s): W19.XXXA - Unspecified fall, initial encounter (3) CAD (coronary artery disease) Current visit: Yes Status: Chronic Category: Medical Code(s): I25.10 - Atherosclerotic heart disease of [place] coronary artery without angina pectoris (4) Paroxysmal A-fib Current visit: Yes Status: Chronic Category: Medical Code(s): I48.0 - Paroxysmal atrial fibrillation (5) Anemia Current visit: Yes Status: Chronic Qualifiers: Anemia type: unspecified type Qualified Code(s): D64.9 - Anemia, unspecified Category: Medical Code(s): D64.9 - Anemia, unspecified (6) Diabetes Current visit: Yes Status: Chronic Qualifiers: Diabetes mellitus type: type 2 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 Diabetes mellitus complication status: with other specified complication Qualified Code(s): E11.69 - Type 2 diabetes mellitus with other specified complication Category: Medical Code(s): E11.9 - Type 2 diabetes mellitus without complications (7) Renal insufficiency Current visit: Yes Status: Acute Category: Medical Code(s): N28.9 - Disorder of kidney and ureter, unspecified (8) Blood loss anemia Current visit: Yes Status: Acute Category: Medical Code(s): D50.0 - Iron deficiency anemia secondary to blood loss (chronic) - Assessment and plan all Dx Assessment and Plan for all problems:: Saw patient, agree with above note. BP is normal today, she is more hypoxic, repeat CXR, await lab results.
[2019-10-08 08:44] LABS: Anion Gap 18.4 mEq/L (5-15); Calcium 7.6 mg/dL (8.5-10.1)
[2019-10-08 11:06] LABS: ABG Base Excess -6.8 mmol/L (-2.4-2.3); ABG HCO3 19.6 mmhg (22.0-26.0); ABG Oxygen Saturation 89 % (90-100); ABG PCO2 40.4 mmhg (35.0-45.0); ABG PO2 57.3 mmhg (80-100); ABG TCO2 20.8 mmhg (23-27)
[2019-10-08 11:09] LABS: Oxygen 50% %
--- NOTE | 2019-10-09 08:31 | Progress Note ---
<Ebony Garcia - Last Filed: 10/09/19 08:29> Internal Medicine - PN: Subj *Date: 10/09/19 *Time: 08:29 Interval history: Patient states she is feeling a little bit better today. Her family member has gotten her to eat most of her breakfast. She is more coherent. He states he had the nurses only give her half of her pain medication at each dose and this seems to keep her from being so drowsy. She denies any pain today. She states she did sleep well last night. Exam Vital signs and Labs for Last 24 Hours: Temp Pulse Resp BP Pulse Ox 97.8 F 94 H 17 141/68 H 90 L 10/09/19 04:00 10/09/19 04:00 10/09/19 04:00 10/09/19 04:00 10/09/19 04:00 Laboratory Results - last 24 hr 10/08/19 07:20: Sodium 136, Potassium 5.4 H, Chloride 105, Carbon Dioxide 18 L D , Anion Gap 18.4 H, BUN 49 H, Creatinine 2.92 H, Estimated Creat Clear 18, Estimated GFR 15 L*, Est GFR ( Amer) 19 L*, Glucose 162 H, Calcium 7.6 L 10/08/19 10:22: Specimen Source L brachial, O2 % 50%, ABG pH 7.30 L, ABG pCO2 40.4, ABG pO2 57.3 L, ABG HCO3 19.6 L, ABG Total CO2 20.8 L, ABG O2 Saturation 89 L, ABG Base Excess -6.8 L 10/08/19 10:27: POC Glucose 168 H 10/08/19 11:41: POC Glucose 179 H 10/08/19 16:46: POC Glucose 186 H 10/08/19 20:29: POC Glucose 210 H 10/09/19 06:37: POC Glucose 178 H I & O for Last 24 hours: Intake & Output 10/06/19 10/07/19 10/08/19 10/09/19 11:59 11:59 11:59 11:59 Intake Total 666 / 666 2055 / 2055 3558 / 3558 2655 / 2655 Output Total 100 / 100 100 / 100 350 / 350 200 / 200 Balance 566 / 566 195 / 195 3208 / 3208 2455 / 2455 Weight 170 lb 3.009 oz 178 lb 2 oz 179 lb 12.8 oz 182 lb 2 oz Microbiology Reports for the Last 24 Hours: Microbiology 10/07/19 09:10 Urine,Catheterized Urine Culture - Preliminary NO GROWTH AFTER 24 HOURS - Constitutional no acute distress - *Routine Respiratory Exam Present: decreased breath sounds, crackles (faint bibasilar) - *Routine Cardiovascular Exam Present: irregularly irregular - *Routine Abdominal Exam Present: soft, normoactive bowel sounds. Absent: tenderness - *Routine Extremities Exam Present: edema (trace pretibial edema bilaterally). Absent: cyanosis, clubbing - *Routine Skin Exam Present: pallor - *Routine Neurological Exam Present: alert, oriented X3 Assessment and Plan (1) Rib fractures Current visit: Yes Status: Acute Qualifiers: Encounter type: initial encounter Rib fracture type: multiple ribs Fracture type: closed Laterality: left Qualified Code(s): S22.42XA - Multi ple fractures of ribs, left side, initial encounter for closed fracture Category: Medical Code(s): S22.39XA - Fracture of one rib, unspecified side, initial encounter for closed fracture (2) Fall Current visit: Yes Status: Acute Qualifiers: Encounter type: initial encounter Qualified Code(s): W19.XXXA - Unspecified fall, initial encounter Category: Medical Code(s): W19.XXXA - Unspecified fall, initial encounter (3) CAD (coronary artery disease) Current visit: Yes Status: Chronic Category: Medical Code(s): I25.10 - Atherosclerotic heart disease of [place] coronary artery without angina pectoris (4) Paroxysmal A-fib Current visit: Yes Status: Chronic Category: Medical Code(s): I48.0 - Paroxysmal atrial fibrillation (5) Anemia Current visit: Yes Status: Chronic Qualifiers: Anemia type: unspecified type Qualified Code(s): D64.9 - Anemia, unspecified Category: Medical Code(s): D64.9 - Anemia, unspecified (6) Diabetes Current visit: Yes Status: Chronic Qualifiers: Diabetes mellitus type: type 2 Diabetes mellitus [employer] insulin use: unspecified [employer] insulin use status Diabetes mellitus complication status: with other specified complication Qualified Code(s): E11.69 - Type 2 diabetes mellitus with other specified complication Category: Medical Code(s): E11.9 - Type 2 diabetes mellitus without complications (7) Renal insufficiency Current visit: Yes Status: Acute Category: Medical Code(s): N28.9 - Disorder of kidney and ureter, unspecified (8) Blood loss anemia Current visit: Yes Status: Acute Category: Medical Code(s): D50.0 - Iron deficiency anemia secondary to blood loss (chronic) - Assessment and plan all Dx Assessment and Plan for all problems:: We will recheck labs tomorrow. We will continue antibiotics for her pneumonia. Will discuss further care with Dr. Vasquez. <Shilo Vasquez - Last Filed: 10/09/19 09:09> Internal Medicine - PN: Subj *Date: 10/09/19 *Time: 09:08 Exam Vital signs and Labs for Last 24 Hours: Temp Pulse Resp BP Pulse Ox 97.8 F 90 17 141/68 H 90 L 10/09/19 04:00 10/09/19 08:00 10/09/19 04:00 10/09/19 04:00 10/09/19 04:00 Laboratory Results - last 24 hr 10/08/19 10:22: Specimen Source L brachial, O2 % 50%, ABG pH 7.30 L, ABG pCO2 40.4, ABG pO2 57.3 L, ABG HCO3 19.6 L, ABG Total CO2 20.8 L, ABG O2 Saturation 89 L, ABG Base Excess -6.8 L 10/08/19 10:27: POC Glucose 168 H 10/08/19 11:41: POC Glucose 179 H 10/08/19 16:46: POC Glucose 186 H 10/08/19 20:29: POC Glucose 210 H 10/09/19 06:37: POC Glucose 178 H 10/09/19 06:46: Sodium 137, Potassium 5.7 H, Chloride 105, Carbon Dioxide 20 L, Anion Gap 17.7 H, BUN 55 H, Creatinine 2.71 H, Estimated Creat Clear 20, Estimated GFR 17 L*, Est GFR ( Amer) 20 L, Glucose 169 H, Calcium 7.9 L 10/09/19 08:50: WBC 9.3, RBC 3.27 L, Hgb 9.0 L, Hct 29.5 L, MCV 90.0, MCH 27.6, MCHC 30.7 L, RDW 14.5, Plt Count 169 D, MPV 9.7, Neut % (Auto) 67.4, Lymph % (Auto) 25.3, [place] % (Auto) 4.8, Eos % (Auto) 2.1, Baso % (Auto) 0.3, Neut # (Auto) 6.3, Lymph # (Auto) 2.4, [place] # (Auto) 0.5, Eos # (Auto) 0.2, Baso # (Auto) 0.0 I & O for Last 24 hours: Intake & Output 10/06/19 10/07/19 10/08/19 10/09/19 23:59 23:59 23:59 23:59 Intake Total 1268 / 1268 3060 / 3060 2608 / 2608 1453 / 1453 Output Total 100 / 100 350 / 350 200 / 200 Balance 1168 / 1168 3060 / 3060 2258 / 2258 1253 / 1253 Weight 170 lb 3.009 oz 178 lb 2 oz 179 lb 12.8 oz 182 lb 2 oz Microbiology Reports for the Last 24 Hours: Microbiology 10/07/19 09:10 Urine,Catheterized Urine Culture - Preliminary NO GROWTH AFTER 24 HOURS Assessment and Plan (1) Rib fractures Current visit: Yes Status: Acute Qualifiers: Encounter type: initial encounter Rib fracture type: multiple ribs Fracture type: closed Laterality: left Qualified Code(s): S22.42XA - Multiple fractures of ribs, left side, initial encounter for closed fracture Category: Medical Code(s): S22.39XA - Fracture of one rib, unspecified side, initial encounter for closed fracture (2) Fall Current visit: Yes Status: Acute Qualifiers: Encounter type: initial encounter Qualified Code(s): W19.XXXA - Unspecified fall, initial encounter Category: Medical Code(s): W19.XXXA - Unspecified fall, initial encounter (3) CAD (coronary artery disease) Current visit: Yes Status: Chronic Category: Medical Code(s): I25.10 - Atherosclerotic heart disease of [place] coronary artery without angina pectoris (4) Paroxysmal A-fib Current visit: Yes Status: Chronic Category: Medical Code(s): I48.0 - Paroxysmal atrial fibrillation (5) Anemia Current visit: Yes Status: Chronic Qualifiers: Anemia type: unspecified type Qualified Code(s): D64.9 - Anemia, unspecified Category: Medical Code(s): D64.9 - Anemia, unspecified (6) Diabetes Current visit: Yes Status: Chronic Qualifiers: Diabetes mellitus type: type 2 Diabetes mellitus [facility] insulin use: unspecified [facility] insulin use status Diabetes mellitus complication status: with other specified complication Qualified Code(s): E11.69 - Type 2 diabetes mellitus with other specified complication Category: Medical Code(s): E11.9 - Type 2 diabetes mellitus without complications (7) Renal insufficiency Current visit: Yes Status: Acute Category: Medical Code(s): N28.9 - Disorder of kidney and ureter, unspecified (8) Blood loss anemia Current visit: Yes Status: Acute Category: Medical Code(s): D50.0 - Iron deficiency anemia secondary to blood loss (chronic) (9) Bilateral pneumonia Current visit: Yes Status: Acute Qualifiers: Lung location: lower lobe of lung Category: Medical Code(s): J18.9 - Pneumonia, unspecified organism - Assessment and plan all Dx Assessment and Plan for all problems:: Saw patient, agree with above note.
[2019-10-09 08:53] LABS: Anion Gap 17.7 mEq/L (5-15); Calcium 7.9 mg/dL (8.5-10.1)
[2019-10-09 09:02] LABS: Basophils % 0.3 % (0.1-2.0); Eosinophils # 0.2 K/mm3 (0.0-0.4); Eosinophils % 2.1 % (0.1-12.0); Hematocrit 29.5 % (37.0-47.0); Lymphocytes # 2.4 K/mm3 (0.7-4.5); Lymphocytes % 25.3 % (10-50); Mean Corpuscular HGB Conc 30.7 g/dL (31.8-35.4); Mean Platelet Volume 9.7 fl (7.4-10.4); Monocytes # 0.5 K/mm3 (0.1-1.0); Monocytes % 4.8 % (1.7-9.3); Neutrophils # 6.3 K/mm3 (1.8-7.8); Neutrophils % 67.4 % (37.0-80.0); Platelet Count 169 K/mm3 (142-424); Red Blood Count 3.27 M/mm3 (4.20-5.40); Red Cell Distribution Width 14.5 % (11.5-17.5); White Blood Count 9.3 K/mm3 (4.8-10.8)
[2019-10-10 06:52] LABS: ABG Base Excess -8.5 mmol/L (-2.4-2.3); ABG Oxygen Saturation 90 % (90-100); ABG PCO2 45.5 mmhg (35.0-45.0); ABG PH 7.24 mmol/L (7.35-7.45); ABG PO2 60.7 mmhg (80-100); ABG TCO2 20.4 mmhg (23-27)
[2019-10-10 06:54] LABS: Allen's Test Patient Unable
[2019-10-10 07:26] LABS: Basophils % 0.3 % (0.1-2.0); Eosinophils # 0.1 K/mm3 (0.0-0.4); Eosinophils % 0.6 % (0.1-12.0); Hematocrit 30.3 % (37.0-47.0); Hemoglobin 9.1 g/dL (12.2-16.2); Lymphocytes # 2.2 K/mm3 (0.7-4.5); Lymphocytes % 24.5 % (10-50); Mean Corpuscular HGB Conc 30.2 g/dL (31.8-35.4); Mean Corpuscular Volume 91.9 fl (81-99); Monocytes # 0.5 K/mm3 (0.1-1.0); Monocytes % 5.2 % (1.7-9.3); Neutrophils # 6.2 K/mm3 (1.8-7.8); Neutrophils % 69.4 % (37.0-80.0); Platelet Count 180 K/mm3 (142-424); Red Cell Distribution Width 14.9 % (11.5-17.5)
[2019-10-10 07:34] LABS: Anion Gap 18.7 mEq/L (5-15); Calcium 8.2 mg/dL (8.5-10.1)
--- NOTE | 2019-10-10 08:47 | Progress Note ---
Internal Medicine - PN: Subj *Date: 10/10/19 *Time: 08:56 Interval history: No new problems reported overnight, nursing staff reports patient seems a little more short of breath today, unable to wean FiO2 overnight. Exam Vital signs and Labs for Last 24 Hours: Temp Pulse Resp BP Pulse Ox 97.4 F L 100 H 20 121/64 92 L 10/10/19 07:51 10/10/19 07:51 10/10/19 07:51 10/10/19 07:51 10/10/19 07:51 Laboratory Results - last 24 hr 10/09/19 06:46: Sodium 137, Potassium 5.7 H, Chloride 105, Carbon Dioxide 20 L, Anion Gap 17.7 H, BUN 55 H, Creatinine 2.71 H, Estimated Creat Clear 20, Estimated GFR 17 L*, Est GFR ( Amer) 20 L, Glucose 169 H, Calcium 7.9 L 10/09/19 08:50: WBC 9.3, RBC 3.27 L, Hgb 9.0 L, Hct 29.5 L, MCV 90.0, MCH 27.6, MCHC 30.7 L, RDW 14.5, Plt Count 169 D, MPV 9.7, Neut % (Auto) 67.4, Lymph % (Auto) 25.3, [place] % (Auto) 4.8, Eos % (Auto) 2.1, Baso % (Auto) 0.3, Neut # (Auto) 6.3, Lymph # (Auto) 2.4, [place] # (Auto) 0.5, Eos # (Auto) 0.2, Baso # (Auto) 0.0 10/09/19 11:52: POC Glucose 175 H 10/09/19 16:21: POC Glucose 137 H 10/09/19 20:50: POC Glucose 153 H 10/10/19 06:11: Specimen Source Left radial, O2 % 50% venti, ABG pH 7.24 L*, ABG pCO2 45.5 H, ABG pO2 60.7 L, ABG HCO3 19.0 L, ABG Total CO2 20.4 L, ABG O2 Saturation 90, ABG Base Excess -8.5 L, Uziel Test Patient unable 10/10/19 06:31: POC Glucose 205 H 10/10/19 07:10: WBC 9.0, RBC 3.30 L, Hgb 9.1 L, Hct 30.3 L, MCV 91.9, MCH 27.7, MCHC 30.2 L, RDW 14.9, Plt Count 180, MPV 9.0, Neut % (Auto) 69.4, Lymph % (Auto) 24.5, [place] % (Auto) 5.2, Eos % (Auto) 0.6, Baso % (Auto) 0.3, Neut # (Auto) 6.2, Lymph # (Auto) 2.2, [place] # (Auto) 0.5, Eos # (Auto) 0.1, Baso # (Auto) 0.0 10/10/19 07:10: Sodium 140, Potassium 5.7 H, Chloride 107, Carbon Dioxide 20 L, Anion Gap 18.7 H, BUN 61 H, Creatinine 2.74 H, Estimated Creat Clear 20, Estimated GFR 17 L*, Est GFR ( Amer) 20 L, Glucose 203 H, Calcium 8.2 L Vital Signs - 24 hr 10/09/19 12:00 10/09/19 16:00 10/09/19 19:58 Temperature 98.3 F 98.3 F Pulse Rate 100 H 110 H Pulse Rate [Right] 103 H 105 H Respiratory Rate 19 20 Blood Pressure [Left Arm] 138/85 135/72 02 Sat by Pulse Oximetry 91 L 92 L 10/09/19 20:00 10/09/19 20:42 10/10/19 00:00 Temperature 97.6 F Pulse Rate 100 H 110 H Pulse Rate [Right] 110 H Respiratory Rate 20 Blood Pressure [Left Arm] 148/75 H 02 Sat by Pulse Oximetry 91 L 90 L 10/10/19 04:00 10/10/19 07:51 Temperature 98.1 F 97.4 F L Pulse Rate 100 H Pulse Rate [Right] 118 H 100 H Respiratory Rate 18 20 Blood Pressure [Left Arm] 147/76 H 121/64 02 Sat by Pulse Oximetry 90 L 92 L I & O for Last 24 hours: Intake & Output 10/07/19 10/08/19 10/09/19 10/10/19 23:59 23:59 23:59 23:59 Intake Total 3060 / 3060 2608 / 2608 3133 / 3133 0 / 0 Output Total 350 / 350 500 / 500 400 / 400 Balance 3060 / 3060 2258 / 2258 2633 / 2633 -400 / -400 Weight 178 lb 2 oz 179 lb 12.8 oz 182 lb 2 oz Microbiology Reports for the Last 24 Hours: Microbiology 10/07/19 09:10 Urine,Catheterized Urine Culture - Final NO GROWTH AFTER 48 HOURS Radiology Reports for the Last 24 Hours: CXR today shows worsening pulmonary congestion with bilateral effusions, consistent with worsening CHF. - Constitutional Comments: Appears not to feel well, increased respiratory rate, alert answers questions - *Routine HEENT Exam Head: Present: normocephalic Eye: Present: EOMI, PERRL ENT: Present: mucous membranes moist - *Routine Neck Exam Present: supple, JVD. Absent: lymphadenopathy - *Routine Respiratory Exam Present: decreased breath sounds (bilatreral bases, few crackles) - *Routine Cardiovascular Exam Present: irregularly irregular - *Routine Abdominal Exam Present: soft, normoactive bowel sounds, tenderness (left upper and lower quadrant to deep palpation) - *Routine Extremities Exam Present: edema (1+ bilateral legs). Absent: cyanosis, clubbing - *Routine Skin Exam Present: warm. Absent: rash Comments: extensive bruising along the left upper extremity and left abdominal wall - *Routine Neurological Exam Present: alert Assessment and Plan (1) Rib fractures Current visit: Yes Status: Acute Qualifiers: Encounter type: initial encounter Rib fracture type: multiple ribs Fracture type: closed Laterality: left Qualified Code(s): S22.42XA - Multiple fractures of ribs, left side, initial encounter for closed fracture Category: Medical Code(s): S22.39XA - Fracture of one rib, unspecified side, initial encounter for closed fracture (2) Fall Current visit: Yes Status: Acute Qualifiers: Encounter type: initial encounter Qualified Code(s): W19.XXXA - Unspecified fall, initial encounter Category: Medical Code(s): W19.XXXA - Unspecified fall, initial encounter (3) CAD (coronary artery disease) Current visit: Yes Status: Chronic Category: Medical Code(s): I25.10 - Atherosclerotic heart disease of [place] coronary artery without angina pectoris (4) Paroxysmal A-fib Current visit: Yes Status: Chronic Category: Medical Code(s): I48.0 - Paroxysmal atrial fibrillation (5) Anemia Current visit: Yes Status: Chronic Qualifiers: Anemia type: unspecified type Qualified Code(s): D64.9 - Anemia, unspecified Category: Medical Code(s): D64.9 - Anemia, unspecified (6) Diabetes Current visit: Yes Status: Chronic Qualifiers: Diabetes mellitus type: type 2 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 Diabetes mellitus complication status: with other specified complication Qualified Code(s): E11.69 - Type 2 diabetes mellitus with other specified complication Category: Medical Code(s): E11.9 - Type 2 diabetes mellitus without complications (7) Renal insufficiency Current visit: Yes Status: Acute Category: Medical Code(s): N28.9 - Disorder of kidney and ureter, unspecified (8) Blood loss anemia Current visit: Yes Status: Acute Category: Medical Code(s): D50.0 - Iron deficiency anemia secondary to blood loss (chronic) (9) Bilateral pneumonia Current visit: Yes Status: Acute Qualifiers: Lung location: lower lobe of lung Category: Medical Code(s): J18.9 - Pneumonia, unspecified organism (10) CHF (congestive heart failure) Current visit: Yes Status: Acute Category: Medical Code(s): I50.9 - Heart failure, unspecified (11) Ascites Current visit: Yes Status: Acute Category: Medical Code(s): R18.8 - Other ascites (12) Splenomegaly Current visit: Yes Status: Acute Category: Medical Code(s): R16.1 - Splenomegaly, not elsewhere classified (13) Ventral hernia Current visit: Yes Status: Acute Category: Medical Code(s): K43.9 - Ventral hernia without obstruction or gangrene (14) History of CVA (cerebrovascular accident) Current visit: Yes Status: Acute Category: Medical Code(s): Z86.73 - Personal history of transient ischemic attack (TIA), and cerebral infarction without residual deficits (15) History of coronary artery bypass graft Current visit: Yes Status: Acute Category: Surgical Code(s): Z95.1 - Presence of aortocoronary bypass graft - Assessment and plan all Dx Assessment and Plan for all problems:: CXR and ABG worse today, will give a dose of Bumex now and decrease IVF rate. Discussed treatment plan with family. Requested transfer to [facility] in [place]. Dr. Dumont accepted patient for transfer today.
--- NOTE | 2019-10-11 13:24 | Discharge Summary ---
General - General Admission date:: 10/06/19 Discharge date: 10/10/19 HPI HPI: Ms. Hull is an 84-year-old female with a history of coronary artery disease, type 2 diabetes mellitus, CVA, hypertension, hypothyroidism, atrial fibrillation, and valvular heart disease who presented to [facility] emergency room after falling out of bed. She landed on her left side and hit her head on another piece of furniture. With evaluation in the emergency room she was found to have several fractured ribs. CT of the head showed nothing acute. X-ray of the pelvis and left shoulder were negative. She was admitted for further observation and pain management. At time of H&P, patient was showing discomfort with any type of movement. She actually stated she hurt all over. It hurt to take a deep breath. She stated she had morphine in the emergency room. Hospital Course Hospital Course: The patient's cervical spine CT showed left fifth and sixth rib fractures. The chest CT showed multiple left-sided rib fractures involving the left third through eighth ribs, some of which were mildly displaced. There was no evidence of pneumothorax. There was cardiomegaly with trace bilateral effusions. There was also cirrhosis with splenomegaly and a small amount of upper abdominal ascites. Head CT showed nothing acute. Her pelvic and left shoulder x-ray showed no fractures. She was admitted and started on pain control. An incentive spirometer was ordered. She was started on some sliding scale insulin and only carvedilol for blood pressure as it had been low. She did not feel like eating and was having very little urine output. Her hemoglobin decreased to 6.8, therefore she was given 2 units of packed red blood cells. Her H&H improved to 8.6 and 28. On the morning of 10/07/2019, she was not feeling well. She had difficulty taking a deep breath and was unable to cough. The morphine did not seem to be helping as well. She was placed on telemetry to monitor her heart rate and her A. fib and a Navarro catheter was inserted to monitor her urinary output. She was given a 500 cc fluid bolus and her IV fluids were increased to a rate of 125/h. CT of the abdomen was ordered as well as a repeat chest x-ray do some abdominal tenderness. The abdominal CT showed bilateral pleural effusions with bibasilar consolidation consistent with pneumonia. There was also an asymmetric increased density along the lower abdominal wall centrally and on the left which could reflect a cellulitis versus hemorrhage versus an asymmetric edema. There was also a small amount of ascites. The repeat chest x-ray showed bilateral effusions with bibasilar airspace disease consistent with atelectasis versus infiltrate along with left-sided rib fractures. The patient was started on Levaquin for her pneumonia. She did become more hypoxic and had to be placed on a Ventimask. A repeat chest x-ray showed worsening bilateral lower lobe pneumonia with effusions. Invanz was added to her antibiotic regimen. The patient did begin feeling a little bit better. She was able to start eating and was more coherent. She had less pain. Her urine culture returned normal. She was continued on antibiotics for her pneumonia. She had a repeat chest x-ray on 10/10/2019 showing worsening CHF with edema and bilateral effusions. She did get more short of breath and her FiO2 was unable to be weaned. She had ABGs done, which were also worse, therefore she was given a dose of Bumex and her IV fluid rate was decreased. Dr. Vasquez discussed the treatment plan with the family and they requested transfer to [facility] in [place]. Dr. Dumont accepted the patient for transfer. Objective Vital signs: Temp Pulse Resp BP Pulse Ox 97.6 F 97 H 22 128/68 98 10/10/19 11:56 10/10/19 11:56 10/10/19 11:56 10/10/19 11:56 10/10/19 10:47 Narrative: - Constitutional no acute distress Comments: Discomfort with any movement - *Routine HEENT Exam Head: Present: normocephalic (Left forehead abrasion) Eye: Present: PERRL. Absent: conjunctival icterus, scleral injection ENT: Present: mucous membranes moist - *Routine Neck Exam Present: supple. Absent: lymphadenopathy, thyromegaly - *Routine Respiratory Exam Present: crackles (Left base) - *Routine Cardiovascular Exam Present: RRR, murmur - *Routine Abdominal Exam Present: soft, normoactive bowel sounds. Absent: tenderness, distended - *Routine Extremities Exam Absent: edema, calf tenderness Comments: upper Left arm with ecchymosis; FROM - *Routine Neurological Exam Present: alert, oriented X3 DS: Diagnosis - Discharge Diagnosis (1) Rib fractures Status: Acute (2) Fall Status: Acute (3) CAD (coronary artery disease) Status: Chronic (4) Paroxysmal A-fib Status: Chronic (5) Anemia Status: Chronic (6) Diabetes Status: Chronic (7) Renal insufficiency Status: Acute (8) Blood loss anemia Status: Acute (9) Bilateral pneumonia Status: Acute (10) CHF (congestive heart failure) Status: Acute (11) Ascites Status: Acute (12) Splenomegaly Status: Acute (13) Ventral hernia Status: Acute (14) History of CVA (cerebrovascular accident) Status: Acute (15) History of coronary artery bypass graft Status: Acute Discharge Plan - Patient Discharge Instructions ACTIVITY: Continue current activity DIET: continue same diet Patient Instructions: Rib Fracture, Anemia, DI for Rib Fracture - Follow up Plan Follow up with: Shilo Vasquez MD [Staff Physician] - Disposition: Xfer Short-Term Hosp Prescriptions/Medication Reconciliation: Discontinued Rivaroxaban [Xarelto 15mg tablet] 15 mg PO HS lisinopriL [Lisinopril 20mg Tab] 20 mg PO DAILY Hydralazine HCl 50 mg PO TID Furosemide [Furosemide 40MG tAB] 40 mg PO DAILY carvediloL [Carvedilol 25mg Tab] 25 mg PO BID Atorvastatin Calcium [Lipitor 80mg Tablet] 40 mg PO HS Aspirin [Aspir 81] 81 mg PO DAILY Vit A/C/E/Zinc/Selenium/Copper [Vision Formula Tablet] 1 each PO DAILY Ferrous Sulfate [Iron] 325 mg PO TID Colchicine [Colcrys 0.6mg tablet] 0.6 mg PO DAILY glipiZIDE [Glucotrol 5mg tablet] 5 mg PO BID Isosorbide Dinitrate 30 mg PO TID Amlodipine Besylate [Norvasc 5mg tablet] 5 mg PO DAILY Levothyroxine Sodium [Levothyroxine 125mcg (0.125mg) Tab] 125 mcg PO DAILY - Problem Reconciliation Problems Reviewed?: Yes
== END 2019-10-10 12:01 | disposition short-term general hospital (02) | DRG 183 ==
LOC: ER 06:39 → 2ND 06:39
PROVIDERS: ADMIT Family Medicine; ATTEND Family Medicine
CPT/HCPCS: 36415; 70450; 71010; 71045; 71250; 72125; 72170; 73030; 74176; 80048; 80053; 81001; 82803; 82962; 85025; 85651; 86140; 86850; 87086; 94761; 96374; 96375; 99284; G0378; J1335; J1956; J2405; P9016

== ENCOUNTER → 2019-11-19 16:38 | Outpatient (CLI) | payer MEDICARE, OTHER, SELFPAY ==
[2019-11-19 16:52] LABS: Basophils % 0.5 % (0.1-2.0); Eosinophils # 0.2 K/mm3 (0.0-0.4); Eosinophils % 2.9 % (0.1-12.0); Hemoglobin 8.1 g/dL (12.2-16.2); Lymphocytes # 2.1 K/mm3 (0.7-4.5); Mean Corpuscular HGB Conc 32.5 g/dL (31.8-35.4); Mean Corpuscular Hemoglobin 29.3 pg (27.0-31.2); Mean Corpuscular Volume 90.3 fl (81-99); Monocytes # 0.3 K/mm3 (0.1-1.0); Neutrophils # 2.6 K/mm3 (1.8-7.8); Neutrophils % 51.6 % (37.0-80.0); Platelet Count 110 K/mm3 (142-424); Red Blood Count 2.77 M/mm3 (4.20-5.40); Red Cell Distribution Width 17.6 % (11.5-17.5); White Blood Count 5.1 K/mm3 (4.8-10.8)
[2019-11-19 17:05] LABS: Hematocrit 25.2 % (37.0-47.0); Hemoglobin A1C 6.3 % (0.0-7.0)
[2019-11-19 17:44] LABS: Anion Gap 14.8 mEq/L (5-15); Blood Urea Nitrogen 42 mg/dL (7-18); Calcium 8.4 mg/dL (8.5-10.1); Carbon Dioxide 25 mmol/L (21.0-32.0); Chloride 99 mmol/L (98-107); Estimated Glomerular Filt Rate 24 ml/min (>60); GFR (African American) 29 ML/MIN (>60); Glucose 181 mg/dL (74-106); Potassium 3.8 mmoL/L (3.5-5.1); Sodium 135 mmol/L (136-145)
[2019-11-25 17:37] LABS: Estrogen 64 pg/mL (.)
== END ==
PROVIDERS: Visit Provider Internal Medicine
DX: D64.9 Anemia, unspecified (principal); E03.9 Hypothyroidism, unspecified; Z79.899 Other long term (current) drug therapy
CPT/HCPCS: 80048; 82672; 83036; 85025

== ENCOUNTER → 2020-05-11 13:33 | Outpatient (CLI) | payer OTHER, SELFPAY ==
[2020-05-11 14:46] LABS: Basophils % 0.6 % (0.1-2.0); Eosinophils # 0.1 K/mm3 (0.0-0.4); Eosinophils % 2.2 % (0.1-12.0); Hematocrit 24.5 % (37.0-47.0); Lymphocytes # 1.1 K/mm3 (0.7-4.5); Lymphocytes % 29.2 % (10-50); Mean Corpuscular HGB Conc 32.4 g/dL (31.8-35.4); Mean Corpuscular Hemoglobin 31.5 pg (27.0-31.2); Mean Corpuscular Volume 97.1 fl (81-99); Mean Platelet Volume 9.2 fl (7.4-10.4); Monocytes # 0.2 K/mm3 (0.1-1.0); Monocytes % 4.8 % (1.7-9.3); Neutrophils # 2.4 K/mm3 (1.8-7.8); Neutrophils % 63.2 % (37.0-80.0); Platelet Count 103 K/mm3 (142-424); Red Blood Count 2.52 M/mm3 (4.20-5.40); Red Cell Distribution Width 13.4 % (11.5-17.5); White Blood Count 3.7 K/mm3 (4.8-10.8)
[2020-05-11 15:03] LABS: Chloride 105 mmol/L (98-107); Potassium 4.2 mmoL/L (3.5-5.1); Sodium 137 mmol/L (136-145)
[2020-05-11 15:06] LABS: Alanine Aminotransferase 11 U/L (12-78); Albumin Level 3.5 g/dl (3.5-5.0); Albumin/Globulin Ratio 1.7 (1.1-1.8); Alkaline Phosphatase 108 U/L (38-126); Anion Gap 11.2 mEq/L (5-15); Aspartate Amino Transferase 22 U/L (14-36); Bilirubin,Total 2.1 mg/dl (0.2-1.3); Blood Urea Nitrogen 42 mg/dl (7-17); Calcium 8.9 mg/dl (8.4-10.2); Carbon Dioxide 25 mmol/L (22.0-30.0); Estimated Glomerular Filt Rate 24 ml/min (>60); GFR (African American) 29 ML/MIN (>60); Globulin 2.1 g/dL (1.3-3.2); Glucose 129 mg/dl (74-100); Total Protein,Serum 5.6 g/dl (6.3-8.2)
[2020-05-11 15:14] LABS: Hemoglobin 7.9 g/dL (12.2-16.2)
== END ==
PROVIDERS: Visit Provider Family Medicine
DX: D64.9 Anemia, unspecified (principal)
CPT/HCPCS: 36415; 80053; 85025

== ENCOUNTER → 2020-05-12 12:57 | Outpatient (CLI) | payer OTHER, SELFPAY ==
[2020-05-12] VITALS (13 sets, daily range): BP systolic 112–145; BP diastolic 47–72; PULSE 20–85; RESP 16–20; TEMP 36.6–36.8; O2SAT 94–96; BMI 26.3
[2020-05-12 13:42] LABS: Hemoglobin 7.3 g/dL (12.2-16.2)
[2020-05-12 13:43] LABS: Hematocrit 22.9 % (37.0-47.0)
--- NOTE | 2020-05-12 15:11 | PC.NURSE ---
1445 Initiation of transfusion of 1 unit of PRBC's as ordered per MD. Pt lungs slightly diminished bilateral bases, no rales. 2-3+ edema bilateral legs, consistent with pt baseline on arrival to infusion department/pt and pt's family report this is her normal . Legs elevated/MD aware. Resp easy/reg. Skin cool/dry to touch. Multiple scattered bruises noted to bilateral arms. Verbally instructed patient regarding s/s blood transfusion reaction prior to initiation of blood transfusion/handout given as well, with patient verbalizing understanding of all information/instructions. Vital signs stable.
--- NOTE | 2020-05-12 15:43 | PC.NURSE ---
1530 Patient tolerating blood well at this time. Resp easy/reg, lungs unchanged from baseline pre transfusion. Denies complaints. Talking and laughing with staff. IV patent. VSS. No s/s transfusion reaction or problems noted.
--- NOTE | 2020-05-12 16:58 | PC.NURSE ---
1645 VSS. Pt denies complaints. Tolerating blood transfusion with no s/s transfusion reaction. Resp easy/reg. IV patent. Lungs consistent with baseline, no increase or change in edema to bilateral legs. Pt voids per bedside commode with assistance. Daughter at bedside.
--- NOTE | 2020-05-12 17:14 | PC.NURSE ---
1705 Detailed report called to Kavya Wilhelm RN on Med Surg/2nd floor. Instructed that pt receiving one unit PRBC's and 2nd hour VS recorded at 1645, instructed that pt is to receive Lasix 20mg IV x1 dose after blood transfusion complete. Reported that blood is being transfused over 4 hours per MD order due to extensive cardiac and renal history. Reported that blood needs to be complete by 1836 due to blood being issued per lab at 1436. Reported that pt is have CBC and CMP labs drawn one hour post transfusion. Reported that due to blood being transfused over 4 hours per MD order, nurse is to email Vicenta Maycol in lab with stop/end time. Kavya Wilhelm RN states understanding of all instruction. Pt transported to room 203 med surg/2nd floor via wheelchair per ROSEMARY Stanley and ROSEMARY Saenz and left in care of Kavya Wilhelm RN/luis carlos. Pt's daughter at bedside.
--- NOTE | 2020-05-12 17:43 | PC.NURSE ---
1315 Spoke with MD's office regarding order for CBC and CMP. Instructed per office staff that labs are to be drawn 1 hour post transfusion.
[2020-05-12 19:55] LABS: Basophils % 0.4 % (0.1-2.0); Eosinophils # 0.1 K/mm3 (0.0-0.4); Eosinophils % 2.5 % (0.1-12.0); Lymphocytes # 1.5 K/mm3 (0.7-4.5); Lymphocytes % 31.3 % (10-50); Mean Corpuscular HGB Conc 33.2 g/dL (31.8-35.4); Mean Corpuscular Hemoglobin 31.6 pg (27.0-31.2); Mean Corpuscular Volume 95.1 fl (81-99); Mean Platelet Volume 9.3 fl (7.4-10.4); Monocytes # 0.3 K/mm3 (0.1-1.0); Monocytes % 5.4 % (1.7-9.3); Neutrophils # 2.8 K/mm3 (1.8-7.8); Neutrophils % 60.4 % (37.0-80.0); Platelet Count 104 K/mm3 (142-424); Red Blood Count 2.94 M/mm3 (4.20-5.40); Red Cell Distribution Width 13.9 % (11.5-17.5); White Blood Count 4.7 K/mm3 (4.8-10.8)
[2020-05-12 20:03] LABS: Hemoglobin 9.3 g/dL (12.2-16.2)
[2020-05-12 20:06] LABS: Chloride 106 mmol/L (98-107); Potassium 3.9 mmoL/L (3.5-5.1); Sodium 139 mmol/L (136-145)
[2020-05-12 20:09] LABS: Alanine Aminotransferase 10 U/L (12-78); Albumin Level 3.5 g/dl (3.5-5.0); Albumin/Globulin Ratio 1.5 (1.1-1.8); Alkaline Phosphatase 124 U/L (38-126); Anion Gap 11.9 mEq/L (5-15); Aspartate Amino Transferase 24 U/L (14-36); Bilirubin,Total 2.8 mg/dl (0.2-1.3); Blood Urea Nitrogen 41 mg/dl (7-17); Calcium 8.8 mg/dl (8.4-10.2); Carbon Dioxide 25 mmol/L (22.0-30.0); Creatinine Clearance Estimated 24 mL/min (50-200); Estimated Glomerular Filt Rate 25 ml/min (>60); GFR (African American) 30 ML/MIN (>60); Globulin 2.4 g/dL (1.3-3.2); Glucose 139 mg/dl (74-100); Total Protein,Serum 5.9 g/dl (6.3-8.2)
--- NOTE | 2020-05-13 01:32 | PC.NURSE ---
LATE ENTRY: PT WAS STABLE, A&OX4 WHILE UNDER THIS NURSE'S CARE. REMOVED PT IV, AND WALKED THEM TO THEIR CAR AT 2030. PT HAS NO C/O AND IS PLEASANT UPON LEAVING FACILITY WITH FAMILY MEMBER.
== END ==
PROVIDERS: Visit Provider Family Medicine
DX: D64.9 Anemia, unspecified (principal)
CPT/HCPCS: 36415; 80053; 85014; 85018; 85025; 86850; P9016

== ENCOUNTER → 2020-05-17 15:03 | Outpatient (CLI) | payer OTHER, SELFPAY ==
[2020-05-17 15:51] LABS: Basophils % 0.6 % (0.1-2.0); Eosinophils # 0.1 K/mm3 (0.0-0.4); Eosinophils % 2.5 % (0.1-12.0); Hematocrit 28.1 % (37.0-47.0); Hemoglobin 8.9 g/dL (12.2-16.2); Lymphocytes # 1.2 K/mm3 (0.7-4.5); Mean Corpuscular HGB Conc 31.6 g/dL (31.8-35.4); Mean Corpuscular Hemoglobin 30.5 pg (27.0-31.2); Mean Corpuscular Volume 96.5 fl (81-99); Mean Platelet Volume 8.9 fl (7.4-10.4); Monocytes # 0.2 K/mm3 (0.1-1.0); Monocytes % 4.7 % (1.7-9.3); Neutrophils # 2.2 K/mm3 (1.8-7.8); Neutrophils % 59.1 % (37.0-80.0); Platelet Count 87 K/mm3 (142-424); Red Blood Count 2.91 M/mm3 (4.20-5.40); Red Cell Distribution Width 13.5 % (11.5-17.5); White Blood Count 3.6 K/mm3 (4.8-10.8)
[2020-05-17 17:03] LABS: Chloride 103 mmol/L (98-107); Sodium 137 mmol/L (136-145)
[2020-05-17 17:05] LABS: Blood Urea Nitrogen 38 mg/dl (7-17); Estimated Glomerular Filt Rate 29 ml/min (>60); GFR (African American) 35 ML/MIN (>60)
[2020-05-17 17:06] LABS: Alanine Aminotransferase 8 U/L (12-78); Albumin Level 3.2 g/dl (3.5-5.0); Albumin/Globulin Ratio 1.5 (1.1-1.8); Alkaline Phosphatase 91 U/L (38-126); Aspartate Amino Transferase 20 U/L (14-36); Calcium 8.8 mg/dl (8.4-10.2); Carbon Dioxide 24 mmol/L (22.0-30.0); Globulin 2.2 g/dL (1.3-3.2); Glucose 133 mg/dl (74-100); Total Protein,Serum 5.4 g/dl (6.3-8.2)
== END ==
PROVIDERS: Visit Provider Family Medicine
DX: D64.9 Anemia, unspecified (principal)
CPT/HCPCS: 36415; 80053; 85025; 86850

== ENCOUNTER 2020-05-18 09:05 | Outpatient (CLI) | payer OTHER, SELFPAY ==
[2020-05-18] VITALS (12 sets, daily range): BP systolic 109–139; BP diastolic 51–76; PULSE 61–81; RESP 16–18; TEMP 36.5–36.7; O2SAT 96–97; BMI 263353.3
--- NOTE | 2020-05-18 11:07 | PC.NURSE ---
1005 Transfusion of 1 unit PRBC's initiated at this time. Lungs clear to ausculatiion, diminished bilateral bases. No rales noted. Vital signs stable. Resp easy/reg. Pt denies complaints at this time. Son at bedside. IV patent. Pt has 2-3+ edema bilateral legs that is consistent with her baseline per pt/pt family report. Legs are elevated. Reviewed s/s transfusion reaction with patient, who verbalizes understanding of all instruction.
--- NOTE | 2020-05-18 11:12 | PC.NURSE ---
1105 Patient tolerating blood well. IV patent. Resp easy/reg. VSS. Denies complaints. No s/s of transfusion reaction noted. Lungs consistent with baseline. Edema in bilateral legs consistent with baseline.
--- NOTE | 2020-05-18 12:17 | PC.NURSE ---
1206 Patient tolerating blood well. Pt eating lunch. Denies complaints or problems. No s/s transfusion reaction noted. VSS. Lungs/edema consistent with baseline. No problems seen at this time.
--- NOTE | 2020-05-18 14:01 | PC.NURSE ---
1305 Blood infusing without problems. IV patent. Resp easy/reg. VSS. Skin warm/dry to touch. Son at bedside. Patient denies complaints. No s/s transfusion reaction noted. Pt pleasant/talkative and laughing with staff and her son. Resp easy/reg. Lungs/edema no change from baseline assessment. 1343 Transfusion of blood complete at this time. Blood given slowly as per MD order with up to 4 hours to transfuse. Blood picked up from lab at 0958, transfusion complete at 1343 with pt tolerating well. Will obtain 1 hour post H&H per protocol.
[2020-05-18 15:03] LABS: Hematocrit 29.8 % (37.0-47.0); Hemoglobin 9.9 g/dL (12.2-16.2)
--- NOTE | 2020-05-18 15:04 | PC.NURSE ---
1443 One hour post transfusion H&H drawn per protocol. IV discontinued for pt discharge home. VSS. Patient denies complaints. Resp easy/reg. Lungs/Edema unchanged/consistent with baseline pre transfusion assessment. No s/s transfusion reaction noted.
== END 2020-05-18 14:50 | disposition home or self-care (01) ==
LOC: INF 09:05
PROVIDERS: Visit Provider Family Medicine
DX: D64.9 Anemia, unspecified (principal)
CPT/HCPCS: 36430; 85014; 85018; P9016

== ENCOUNTER 2020-06-26 12:14 | Emergency (ER) | payer MEDICARE, SELFPAY ==
[2020-06-26 12:24] VITALS: BP 126/50; PULSE 71; RESP 16; TEMP 36.7; O2SAT 98; BMI 26.7
--- NOTE | 2020-06-26 13:43 | [facility].EDGENADL ---
ED Disposition Clinical Impression: Otalgia, left ear, Dental infection Disposition: Home, Self-Care Condition on Discharge: Good Instructions: DI for Ear Pain-Adult Additional Instructions: Cipro otic. Clindamycin. Follow-up recheck with your primary care provider this week, call tomorrow for appointment. Prescriptions: Ciprofloxacin HCl [Ciprofloxacin 0.2% Otic Soln] 2 drops OT BID 7 Days #10 bottle Transmission Status: Pending to [facility] clindamycin HCL [Clindamycin HCl 300mg Cap] 300 mg PO Q8H #21 cap Transmission Status: Pending to [facility] Referrals: Clemente Pereira MD [Primary Care Provider] - - Critical Care Critical Care Time: No Attestation: On 06/26/20, the high probability of a clinically significant, sudden or life threatening deterioration of the following system(s) required my full and direct attention, intervention and personal management. The time I documented below is in addition to time spent performing reported procedures but includes the following listed in this critical care notation. Medical Decision Making - Roland Inquiry Pt receiving controlled substance: No Vital Signs: 06/26/20 12:24 Temperature 98.1 F Temperature Source Oral Pulse Rate [Right] 71 Respiratory Rate 16 Blood Pressure [Right Arm] 126/50 L Blood Pressure Mean [Right Arm] 75 Blood Pressure Source [Right Arm] Automatic Cuff Blood Pressure Position [Right Arm] Sitting 02 Sat by Pulse Oximetry 98 Oxygen Delivery Method Room Air General Adult HPI - General Chief complaint: Ear Stated complaint: ear pain Time Seen by Provider: 06/26/20 13:43 Mode of Arrival: Wheelchair Limitations: No Limitations Description of Symptoms (Recalled from ER Triage Doc. by RN): Pt c/o left ear pain. Advises her ear started hurting on - History of Present Illness HPI narrative: States that she has left ear pain and tenderness since 3 days ago. Also her left upper gums hurt, began at the same time. She says she had her teeth cleaned on . No fever. No URI symptoms. She is used some leftover Cortisporin otic eardrops which were a few years old without improvement. No ear drainage. No loss of hearing. No ear bleeding. - Related Data Home Medications Medication Instructions Recorded Confirmed Apixaban [Eliquis 2.5mg tab] 2.5 mg PO BID 01/16/20 05/18/20 Aspirin [Aspir 81] 81 mg PO DAILY 01/16/20 05/18/20 Atorvastatin Calcium [Lipitor 40mg 40 mg PO DAILY 01/16/20 05/18/20 Tablet] Bumetanide [Bumex 1mg tablet] 1 mg PO DAILY 01/16/20 05/18/20 Colchicine [Colcrys 0.6mg tablet] 0.6 mg PO DAILY 01/16/20 05/18/20 Ferrous Sulfate 325 mg PO DAILY 01/16/20 05/18/20 Hydralazine HCl 100 mg PO TID 01/16/20 05/18/20 Isosorbide Dinitrate 30 mg PO TID 01/16/20 05/18/20 Levothyroxine Sodium 125 mcg PO DAILY 01/16/20 05/18/20 [Levothyroxine 125mcg (0.125mg) Tab] Pantoprazole Sodium [Protonix 40mg 40 mg PO DAILY 01/16/20 05/18/20 tablet] carvediloL [Carvedilol 25mg Tab] 25 mg PO BID 01/16/20 05/18/20 dilTIAZem HCL [Cardizem 30mg 45 mg PO TID 01/16/20 05/18/20 tab] glipiZIDE [Glipizide ER] 2.5 mg PO DAILY 01/16/20 05/18/20 Potassium Chloride 20 meq PO DAILY 05/12/20 05/18/20 Previous Rx's Medication Instructions Recorded Ciprofloxacin HCl [Ciprofloxacin 2 drops OT BID 7 Days #10 bottle 06/26/20 0.2% Otic Soln] clindamycin HCL [Clindamycin HCl 300 mg PO Q8H #21 cap 06/26/20 300mg Cap] Allergies Allergy/AdvReac Type Severity Reaction Status Date / Time enoxaparin [From LOVENOX] Allergy Severe Difficulty Verified 06/26/20 12:29 Breathing heparin [HEPARIN] Allergy Severe Difficulty Verified 06/26/20 12:29 Breathing Penicillins Allergy Intermediate Hives Verified 06/26/20 12:29 betamethasone Allergy Unknown Verified 06/26/20 12:29 [From CELESTONE] cefuroxime [From CEFTIN] Allergy Unknown Verified 06/26/20 12:29 dexamethas
[2020-06-26 14:03] VITALS: BP 146/57; PULSE 74; RESP 16; TEMP 36.7; O2SAT 98
== END 2020-06-26 14:04 | disposition home or self-care (01) ==
PROVIDERS: Emergency Provider Emergency Medicine; PCP Family Medicine
DX: K04.7 Periapical abscess without sinus (principal); H92.02 Otalgia, left ear; I48.20 Chronic atrial fibrillation, unspecified; I25.10 Atherosclerotic heart disease of native coronary artery without angina pectoris; E11.9 Type 2 diabetes mellitus without complications; I50.9 Heart failure, unspecified; I10 Essential (primary) hypertension; E78.5 Hyperlipidemia, unspecified; E03.9 Hypothyroidism, unspecified; Z95.1 Presence of aortocoronary bypass graft; Z90.49 Acquired absence of other specified parts of digestive tract; Z79.899 Other long term (current) drug therapy; Z88.0 Allergy status to penicillin; Z88.1 Allergy status to other antibiotic agents; Z88.8 Allergy status to other drugs, medicaments and biological substances
CPT/HCPCS: 99281

== ENCOUNTER 2020-07-27 11:30 | Outpatient (CLI) | payer OTHER, SELFPAY ==
[2020-07-27] VITALS (11 sets, daily range): BP systolic 114–137; BP diastolic 48–78; PULSE 76–89; RESP 18; TEMP 36.4–37.1; BMI 25.0
[2020-07-27 12:14] LABS: Hemoglobin 7.8 g/dL (12.2-16.2)
[2020-07-27 12:15] LABS: Hematocrit 23.7 % (37.0-47.0)
--- NOTE | 2020-07-27 13:26 | PC.NURSE ---
1320-BLOOD TRANSFUSION STARTED AT 75 ML/HR AT THIS TIME.
--- NOTE | 2020-07-27 17:00 | PC.NURSE ---
PT NOT STAYING FOR 1 HR POST H&H OR VITALS BASED ON DR'S ORDERS. WILL RETURN ON 07/29/20 FOR 2ND UNIT AND HAVE LABS IN 1 WEEK. PT AND FAMILY INSTRUCTED TO NOTIFY PCP OR COME TO ER IF S&S BLOOD TRANSFUSION REACTION OCCUR. UNDERSTANDING VERBALIZED.
== END 2020-07-27 17:20 | disposition home or self-care (01) ==
LOC: INF 11:41
PROVIDERS: Visit Provider Family Medicine
DX: D64.9 Anemia, unspecified (principal)
CPT/HCPCS: 36430; 85014; 85018; 86850; P9016

== ENCOUNTER 2020-07-29 08:45 | Outpatient (CLI) | payer OTHER, SELFPAY ==
[2020-07-29] VITALS (12 sets, daily range): BP systolic 136–157; BP diastolic 57–85; PULSE 76–94; RESP 18–20; TEMP 36.4–37.1; O2SAT 95–96
--- NOTE | 2020-07-29 09:00 | PC.NURSE ---
0900- pt is going to receive 2nd unit of blood; pt received 1st unit on 07/27/20 and per md grossman, orders were given to run units in over 4 hours and do not wait to collect one hour post h&H pt will have labs rechecked next week
--- NOTE | 2020-07-29 13:20 | PC.NURSE ---
1320-PT BEING DISCHARGED HOME WITH DAUGHTER, PT DID NOT REQUIRE POST H&H PER MD ORDER ON 07/27/20.
== END 2020-07-29 13:50 | disposition home or self-care (01) ==
LOC: INF 08:48
PROVIDERS: Visit Provider Family Medicine
DX: D64.9 Anemia, unspecified (principal)
CPT/HCPCS: 36430; P9016

== ENCOUNTER → 2021-03-28 10:13 | Outpatient (CLI) | payer OTHER, SELFPAY ==
[2021-03-28 10:28] LABS: Hemoglobin 8.3 g/dL (12.2-16.2); Monocytes # 0.1 K/mm3 (0.1-1.0); Neutrophils # 0.8 K/mm3 (1.8-7.8)
[2021-03-28 10:34] LABS: Basophils % 0.5 % (0.1-2.0); Eosinophils % 1.8 % (0.1-12.0); Hematocrit 25.9 % (37.0-47.0); Lymphocytes # 0.8 K/mm3 (0.7-4.5); Lymphocytes % 45.9 % (10-50); Mean Corpuscular HGB Conc 32.1 g/dL (31.8-35.4); Mean Corpuscular Hemoglobin 32.1 pg (27.0-31.2); Mean Corpuscular Volume 99.8 fl (81-99); Mean Platelet Volume 9.1 fl (7.4-10.4); Monocytes % 5.2 % (1.7-9.3); Neutrophils % 46.7 % (37.0-80.0); Red Cell Distribution Width 14.3 % (11.5-17.5); White Blood Count 1.7 K/mm3 (4.8-10.8)
[2021-03-28 11:03] LABS: Platelet Count 45 K/mm3 (142-424)
== END ==
PROVIDERS: Visit Provider Family Medicine
DX: I50.9 Heart failure, unspecified (principal)
CPT/HCPCS: 85025